=== PATIENT | male | born 1970 | race Caucasian/White ===

== ENCOUNTER 2016-04-18 02:13 | Emergency (ER) | payer SELFPAY ==
[2016-04-18] MEDS ORDERED: IPRATROPIUM 0.5MG/ALBUTEROL 2.5MG INH SOL UD 3ML (DUONEB)(J7620) As Ordered ONE (03:29)
[2016-04-18] MEDS ORDERED: predniSONE 20 MG TAB As Ordered ONE (03:32)
[2016-04-18] MEDS ORDERED: ALBUTEROL 90 MCG/ACT 8GM HFA INHALER As Ordered ONE (04:57)
--- NOTE | 2016-04-18 05:01 | EDDOCDS ---
Nurse's Notes [facility] Name: Aleksey Osullivan Age: 45 yrs Sex: Male : 1970 Arrival Date: 04/18/2016 Time: 02:13 Bed 12 Private MD: Diagnosis: Chronic obstructive pulmonary disease with (acute) exacerbation Presentation: 04/18 02:39 Presenting complaint: Patient states: increasing difficulty breathing for about one cz week pt here working on a project pt not from this area pt readily admits to smoking and history of same . history of COPD and asthma looking for a breathing treatment doesn't want a CXR. Adult Sepsis Screening: The patient does not have new or worsening altered mentation. Patient's respiratory rate is less than 22. Systolic blood pressure is greater than 100. Patient has a qSOFA score of 0- Negative Sepsis Screen. Suicide/Homicide risk assessment- the patient denies having any suicidal and/or homicidal ideations and does not present with any other emotional, behavioral or mental health complaints. 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 Transition of care: patient was not received from another setting of care. 02:39 Acuity: JORDIN Level 4 cz 02:39 Method Of Arrival: Walkin/Carried/Asstd cz Triage Assessment: 02:42 General: Appears in no apparent distress. Pain: Denies pain. HIV screening NA for this cz visit Offered previously. Respiratory: Onset: The symptoms/episode began/occurred one week. Historical: - Allergies: No known drug Allergies; - Home Meds: 1. none - PMHx: Asthma; COPD; Seasonal Allergies; - PSHx: right leg surgery; Splenectomy; - The history from nurses notes was reviewed: and I agree with what is documented. - Social history: Smoking status: Patient uses tobacco products, heavy tobacco smoker. No barriers to communication noted, The patient speaks fluent Singaporean, Speaks appropriately for age. - : The pt / caregiver states he / she is not on anticoagulants. Home medication list is obtained from the patient. - Hospitalizations: : No recent hospitalization is reported. - Exposure Risk Screening:: None identified. - Immunization history:: All immunizations up-to-date. - Family history: Not pertinent. - Social history:: the patient smokes cigarettes the patient drinks alcohol. Screenin:12 Screening information is obtained from the patient. Fall risk: No risks identified. cf2 Assistance ADL's: requires no assistance with activities of daily living. Abuse/DV Screen: The patient / caregiver reports he/she is: not in a situation that causes fear, pain or injury. Nutritional screening: No deficits noted. Advance Directives: Further advance directive information is declined. home support is adequate. Assessment: 04:12 General: Appears in no apparent distress, comfortable, Behavior is appropriate for age, cf2 cooperative. Pain: Denies pain. Neurological: No deficits noted. EENT: No deficits noted. Cardiovascular: No deficits noted. Chest pain is denied There has been no movement of pain. Respiratory: Airway is patent Respiratory effort is even, unlabored, Respiratory pattern is regular, Breath sounds with rhonchi Reports cough that is productive, hacking, persistent. GI: No deficits noted. : No deficits noted. Derm: No deficits noted. Musculoskeletal: No deficits noted. Injury Description: No known injury. 04:35 Reassessment: Patient appears in no apparent distress at this time. Patient denies pain cf2 at this time. Patient states feeling better. Patient states symptoms have improved. Adult Sepsis Screening: The patient does not have new or worsening altered mentation. Patient's respiratory rate is less than 22. Systolic blood pressure is greater than 100. Patient has a qSOFA score of 0- Negative Sepsis Screen. General: Patient states he is feeling better and requesting to be discharged. Vital Signs: 02:42 BP 135 / 86; Pulse 72; Resp 18; Temp 97.2(T); Pulse Ox 96% on R/A; Weight 83.91 kg; cz Height 5 ft. 9 in. (175.26 cm); 04:55 BP 110 / 61; Pulse 73; Resp 20; Temp 96.1(O); Pulse Ox 94% on R/A; Pain 0/10; jmv 02:42 Body Mass Index 27.32 (83.91 kg, 175.26 cm) Vitals: 02:42 Log In Time: April 18, 2016 at 02:15. ED Course: 02:14 Patient visited by Marian Knowles. lja 02:14 Patient moved to [facility] 02:41 Triage Initiated 02:45 Martha Penn,RN is Primary Nurse. cf2 02:45 Patient moved to 12 02:46 Patient visited by Martha Penn,SHASHANK. cf2 03:11 Sonido Lee MD is Attending Physician. pc 03:17 Patient visited by Sonido Lee MD. pc 03:18 Patient visited by Martha Penn RN. cf2 03:44 Patient visited by Martha Penn,SHASHANK. cf2 04:12 Patient visited by Martha Penn,SHASHANK. cf2 04:12 The patient / caregiver is instructed regarding the plan of care and ED course. Patient cf2 has correct armband on for positive identification. Placed in gown. Bed in low position. Call light in reach. Side rails up X 1. Side rails up X2. Property :Personal belongings accompany Pt. Door closed. Noise minimized. Visitors limited. Lights dimmed. Moved to private room. Diet tray given. PO fluids given. Verbal reassurance given. Warm blanket given. Pillow given. Head of bed elevated. Diet: Patient given snack. Tolerated well. 04:12 No IV's were initiated during this patient's visit. No procedures done that require cf2 assistance. 04:33 [facility] Payment Agreement was scanned into [employer] and attached to record. hs2 04:55 Patient visited by Ayan Richey PCA. edgar Administered Medications: 03:29 Drug: Albuterol-Ipratropium 1 neb [ipratropium-albuterol 0.5 mg-3 mg(2.5 mg base)/3 mL bb3 nebulization soln (1 neb)] Route: Nebulizer; 03:50 Follow up: lung sounds increased throughout. lung sounds are coarse throughout with bb3 scattered wheezes. Pt had a productive cough with a large amount of clear/white sputum. Pt denies any SOB past baseline at rest at this time. No adverse reactions to neb tx. Will re-assess for final neb in 20 min. 04:32 Follow up: pt refused third neb tx. pt states he does not want it and he has no dyspnea bb3 at this time. 03:29 Drug: Albuterol-Ipratropium 1 neb [ipratropium-albuterol 0.5 mg-3 mg(2.5 mg base)/3 mL bb3 nebulization soln (1 neb)] Route: Nebulizer; 03:44 Drug: predniSONE 60 mg [prednisone 20 mg tablet (3 tabs)] Route: PO; cf2 04:12 Follow up: Response: No Adverse Reaction cf2 04:59 Drug: Ventolin 2 puffs [Ventolin HFA 90 mcg/actuation aerosol inhaler (2 puffs)] Route: cf2 Inhalation; 04:59 Follow up: Response: Pt left department before re-evaluation is appropriate cf2 Intake: RT: 03:27 Oxygen is room air. Respiratory: Respiratory effort is even, unlabored, Respiratory bb3 pattern is regular symmetrical, diminished coarse high pitched inspiratory and expiratory wheezes throughout all lung mcqueen. 03:30 Initial Med Neb Given as ordered Patient was instructed and evaluated on procedure bb3 Subsequent Med Neb Given as ordered Patient was reinforced on procedure. 03:37 Respiratory: strong hacking non productive congested cough noted during neb tx. pulse bb3 77. 03:49 Respiratory: lung sounds increased throughout. lung sounds are coarse throughout with bb3 scattered wheezes. Pt had a productive cough with a large amount of clear/white sputum. Pt denies any SOB past baseline at rest at this time. No adverse reactions to neb tx. Will re-assess for final neb in 20 min. 04:35 Respiratory: third neb not given due to patient refusal. pt states he has no dyspnea bb3 past baseline. provider notified. Order Results: There are currently no results for this order. Outcome: 04:42 Discharge ordered by Provider. pc 04:59 Discharge Assessment: Patient awake, alert and oriented x 3. No cognitive and/or cf2 functional deficits noted. Patient verbalized understanding of disposition instructions. Patient awake and alert. Oriented to person, place and time. Patient verbalized understanding of disposition instructions. patient administered narcotics - no. The following High Risk Discharge criteria are identified: None. Discharged to home ambulatory, with significant other. Condition: good Condition: stable Condition: improved. Discharge instructions given to patient, Instructed on discharge instructions, follow up and referral plans. medication usage, Demonstrated understanding of instructions, medications, Prescriptions given X 4. No special radiology studies were completed. 05:00 Patient left the ED. cf2 Signatures: Sonido Lee MD MD pc Zecher, Calvin, SHASHANK RN Anjum Greenberg bb3 Arel, Iona Hand, Reg Reg hs2 Martha Penn RN RN cf2 Ayan Richey, SOIL CHEMIST SOIL CHEMIST jmv Corrections: (The following items were deleted from the chart) 02:48 02:39 Presenting complaint: Patient states: increasing difficulty breathing for about cz one week pt here working on a project pt not from here cz 03:51 03:27 Respiratory: Respiratory effort is even, unlabored, Respiratory pattern is bb3 regular symmetrical, diminished coarse expiratory wheezes throughout all lung mcqueen. bb3 MTDD
--- NOTE | 2016-04-18 05:01 | EDDOCDS ---
Physician Documentation [facility] Name: Aleksey Osullivan Age: 45 yrs Sex: Male : 1970 Arrival Date: 04/18/2016 Time: 02:13 Bed 12 Private MD: Disposition: 04/18 04:41 Critical Care: Critical care not applicable. pc Disposition: 04/18/16 04:42 Discharged to Home/Self Care. Impression: Chronic obstructive pulmonary disease with (acute) exacerbation. - Condition is Stable. - Discharge Instructions: Chronic Obstructive Pulmonary Disease. - Prescriptions for ipratropium bromide 0.02 % Inhalation solution - inhale 2.5 milliliter by INHALATION route 4 times per day; 1 box. Albuterol Sulfate 2.5 mg /3 mL (0.083 %) Inhalation Solution for Nebulization - inhale 1 unit by NEBULIZATION route 4 times per day As needed; 1 box. Prednisone 20 mg Oral Tablet - take 1 tablet by ORAL route as directed Day 1-3: 3 po, day 4-7: 2 po, day 8-10: 1 po; 20 tablet. Zithromax Z- Hesham 250 mg Oral Tablet - take 2 tablet by ORAL route once daily for 3 days; 6 tablet. - Medication Reconciliation, Local Pharmacy Hours form. - Follow up: Private Physician; When: Upon returning to your home town; Reason: Recheck today's complaints, Continuance of care. - Problem is an acute exacerbation. - Symptoms have improved. HPI: 03:18 This 45 yrs old Male presents to ER via Walkin/Carried/Asstd with complaints pc of Breathing Difficulty. 03:18 The history is obtained from the patient. He has COPD, has caught a "head cold" and is pc out of albuterol nebs. He is from out of town and has his machine but no meds for it. He denies any chest pain, fevers or chills, sputum production. The patient has experienced similar episodes in the past, chronically. The patient has been recently seen at the [facility], 2 months ago, for the same.. Historical: - Allergies: No known drug Allergies; - Home Meds: 1. none - PMHx: Asthma; COPD; Seasonal Allergies; - PSHx: right leg surgery; Splenectomy; - The history from nurses notes was reviewed: and I agree with what is documented. - Social history: Smoking status: Patient uses tobacco products, heavy tobacco smoker. No barriers to communication noted, The patient speaks fluent Martiniquais, Speaks appropriately for age. - : The pt / caregiver states he / she is not on anticoagulants. Home medication list is obtained from the patient. - Hospitalizations: : No recent hospitalization is reported. - Exposure Risk Screening:: None identified. - Immunization history:: All immunizations up-to-date. - Family history: Not pertinent. - Social history:: the patient smokes cigarettes the patient drinks alcohol. ROS: 03:18 All systems are negative except as listed. pc Exam: 03:18 General Appearance: no acute distress, alert. pc 03:18 EENT: normal eye inspection, ears, nose and throat normal, pharynx normal, mucous membranes moist 03:18 Neck: The exam reveals no acute abnormalities. ROM is normal and painless. No nuchal rigidity is noted.. 03:18 Respiratory: no respiratory distress, Breath sounds: wheezing, throughout. 03:18 CVS: regular pulse rate, regular rhythm, normal S1 and S2, no murmurs, strong peripheral pulses. 03:18 Extremities: no pedal edema. Vital Signs: 02:42 BP 135 / 86; Pulse 72; Resp 18; Temp 97.2(T); Pulse Ox 96% on R/A; Weight 83.91 kg / cz 184.99 lbs; Height 5 ft. 9 in. (175.26 cm); 04:55 BP 110 / 61; Pulse 73; Resp 20; Temp 96.1(O); Pulse Ox 94% on R/A; Pain 0/10; jmv 02:42 Body Mass Index 27.32 (83.91 kg, 175.26 cm) cz MDM: 03:18 predniSONE 60 mg PO once; administer with food or milk ordered. pc 03:18 Albuterol-Ipratropium 1 neb Nebulizer every 20 minutes x3 ordered. pc 03:18 Call Respiratory ordered. pc 03:18 Differential Diagnosis: COPD exacerbation. Plan: nebs, meds. pc 03:20 Call Respiratory complete. sew 04:33 Financial registration complete. hs2 04:33 [facility] Payment Agreement was scanned into [employer] and attached to record. hs2 04:41 Data reviewed: old medical records, vital signs, nurses notes. Test interpretation: pulse oximetry is 96% on room air. The patient has been re-examined and re-evaluated. The patient's symptoms have markedly improved after treatment. Disposition: The historical points, examination findings, and any diagnostic results supporting the provided diagnosis, were discussed with the patient or legal guardian. The need for outpatient follow up with the provider listed on their discharge instructions was discussed. They were encouraged to return to [facility], or the nearest ED, if symptoms worsen/persist, or for any other questions/concerns. 04:58 Ventolin Inhaler 2 puffs Inhalation Per package directions; dispense one unit: 2 puffs miles QID prn ordered. Administered Medications: 03:29 Drug: Albuterol-Ipratropium 1 neb [ipratropium-albuterol 0.5 mg-3 mg(2.5 mg base)/3 mL bb3 nebulization soln (1 neb)] Route: Nebulizer; 03:50 Follow up: lung sounds increased throughout. lung sounds are coarse throughout with bb3 scattered wheezes. Pt had a productive cough with a large amount of clear/white sputum. Pt denies any SOB past baseline at rest at this time. No adverse reactions to neb tx. Will re-assess for final neb in 20 min. 04:32 Follow up: pt refused third neb tx. pt states he does not want it and he has no dyspnea bb3 at this time. 03:29 Drug: Albuterol-Ipratropium 1 neb [ipratropium-albuterol 0.5 mg-3 mg(2.5 mg base)/3 mL bb3 nebulization soln (1 neb)] Route: Nebulizer; 03:44 Drug: predniSONE 60 mg [prednisone 20 mg tablet (3 tabs)] Route: PO; cf2 04:12 Follow up: Response: No Adverse Reaction cf2 04:59 Drug: Ventolin 2 puffs [Ventolin HFA 90 mcg/actuation aerosol inhaler (2 puffs)] Route: cf2 Inhalation; 04:59 Follow up: Response: Pt left department before re-evaluation is appropriate cf2 Signatures: Sonido Lee MD MD pc Newman, Jill New, RN RN jan Zecher, Calvin, RN RN cz Wallace, Sarah sew Stanton, Hillary, Reg Reg hs2 Martha Penn RN RN cf2 Bouthillier, Anjum bb3 The chart was reviewed and I authenticate all verbal orders and agree with the evaluation and treatment provided.Attachments: 04:33 [facility] Payment Agreement hs2 MTDD
--- NOTE | 2016-04-20 06:01 | EDDOCDS ---
Physician Documentation [facility] Name: Aleksey Osullivan Age: 45 yrs Sex: Male : 1970 Arrival Date: 04/18/2016 Time: 02:13 Bed 12 Private MD: Disposition: 04/18 04:41 Critical Care: Critical care not applicable. pc Disposition: 04/18/16 04:42 Discharged to Home/Self Care. Impression: Chronic obstructive pulmonary disease with (acute) exacerbation. - Condition is Stable. - Discharge Instructions: Chronic Obstructive Pulmonary Disease. - Prescriptions for ipratropium bromide 0.02 % Inhalation solution - inhale 2.5 milliliter by INHALATION route 4 times per day; 1 box. Albuterol Sulfate 2.5 mg /3 mL (0.083 %) Inhalation Solution for Nebulization - inhale 1 unit by NEBULIZATION route 4 times per day As needed; 1 box. Prednisone 20 mg Oral Tablet - take 1 tablet by ORAL route as directed Day 1-3: 3 po, day 4-7: 2 po, day 8-10: 1 po; 20 tablet. Zithromax Z- Hesham 250 mg Oral Tablet - take 2 tablet by ORAL route once daily for 3 days; 6 tablet. - Medication Reconciliation, Local Pharmacy Hours form. - Follow up: Private Physician; When: Upon returning to your home town; Reason: Recheck today's complaints, Continuance of care. - Problem is an acute exacerbation. - Symptoms have improved. HPI: 03:18 This 45 yrs old Male presents to ER via Walkin/Carried/Asstd with complaints pc of Breathing Difficulty. 03:18 The history is obtained from the patient. He has COPD, has caught a "head cold" and is pc out of albuterol nebs. He is from out of town and has his machine but no meds for it. He denies any chest pain, fevers or chills, sputum production. The patient has experienced similar episodes in the past, chronically. The patient has been recently seen at the [facility], 2 months ago, for the same.. Historical: - Allergies: No known drug Allergies; - Home Meds: 1. none - PMHx: Asthma; COPD; Seasonal Allergies; - PSHx: right leg surgery; Splenectomy; - The history from nurses notes was reviewed: and I agree with what is documented. - Social history: Smoking status: Patient uses tobacco products, heavy tobacco smoker. No barriers to communication noted, The patient speaks fluent Bermudian, Speaks appropriately for age. - : The pt / caregiver states he / she is not on anticoagulants. Home medication list is obtained from the patient. - Hospitalizations: : No recent hospitalization is reported. - Exposure Risk Screening:: None identified. - Immunization history:: All immunizations up-to-date. - Family history: Not pertinent. - Social history:: the patient smokes cigarettes the patient drinks alcohol. ROS: 03:18 All systems are negative except as listed. pc Exam: 03:18 General Appearance: no acute distress, alert. pc 03:18 EENT: normal eye inspection, ears, nose and throat normal, pharynx normal, mucous membranes moist 03:18 Neck: The exam reveals no acute abnormalities. ROM is normal and painless. No nuchal rigidity is noted.. 03:18 Respiratory: no respiratory distress, Breath sounds: wheezing, throughout. 03:18 CVS: regular pulse rate, regular rhythm, normal S1 and S2, no murmurs, strong peripheral pulses. 03:18 Extremities: no pedal edema. Vital Signs: 02:42 BP 135 / 86; Pulse 72; Resp 18; Temp 97.2(T); Pulse Ox 96% on R/A; Weight 83.91 kg / cz 184.99 lbs; Height 5 ft. 9 in. (175.26 cm); 04:55 BP 110 / 61; Pulse 73; Resp 20; Temp 96.1(O); Pulse Ox 94% on R/A; Pain 0/10; jmv 02:42 Body Mass Index 27.32 (83.91 kg, 175.26 cm) cz MDM: 03:18 predniSONE 60 mg PO once; administer with food or milk ordered. pc 03:18 Albuterol-Ipratropium 1 neb Nebulizer every 20 minutes x3 ordered. pc 03:18 Call Respiratory ordered. pc 03:18 Differential Diagnosis: COPD exacerbation. Plan: nebs, meds. pc 03:20 Call Respiratory complete. sew 04:33 Financial registration complete. hs2 04:33 [facility] Payment Agreement was scanned into [employer] and attached to record. hs2 04:41 Data reviewed: old medical records, vital signs, nurses notes. Test interpretation: pulse oximetry is 96% on room air. The patient has been re-examined and re-evaluated. The patient's symptoms have markedly improved after treatment. Disposition: The historical points, examination findings, and any diagnostic results supporting the provided diagnosis, were discussed with the patient or legal guardian. The need for outpatient follow up with the provider listed on their discharge instructions was discussed. They were encouraged to return to [facility], or the nearest ED, if symptoms worsen/persist, or for any other questions/concerns. 04:58 Ventolin Inhaler 2 puffs Inhalation Per package directions; dispense one unit: 2 puffs miles QID prn ordered. Administered Medications: 03:29 Drug: Albuterol-Ipratropium 1 neb [ipratropium-albuterol 0.5 mg-3 mg(2.5 mg base)/3 mL bb3 nebulization soln (1 neb)] Route: Nebulizer; 03:50 Follow up: lung sounds increased throughout. lung sounds are coarse throughout with bb3 scattered wheezes. Pt had a productive cough with a large amount of clear/white sputum. Pt denies any SOB past baseline at rest at this time. No adverse reactions to neb tx. Will re-assess for final neb in 20 min. 04:32 Follow up: pt refused third neb tx. pt states he does not want it and he has no dyspnea bb3 at this time. 03:29 Drug: Albuterol-Ipratropium 1 neb [ipratropium-albuterol 0.5 mg-3 mg(2.5 mg base)/3 mL bb3 nebulization soln (1 neb)] Route: Nebulizer; 03:44 Drug: predniSONE 60 mg [prednisone 20 mg tablet (3 tabs)] Route: PO; cf2 04:12 Follow up: Response: No Adverse Reaction cf2 04:59 Drug: Ventolin 2 puffs [Ventolin HFA 90 mcg/actuation aerosol inhaler (2 puffs)] Route: cf2 Inhalation; 04:59 Follow up: Response: Pt left department before re-evaluation is appropriate cf2 Signatures: Sonido Lee MD MD pc Newman, Jill New, RN RN jan Zecher, Calvin, RN RN cz Wallace, Sarah sew Stanton, Hillary, Reg Reg hs2 Martha Penn RN RN cf2 Bouthillier, Anjum bb3 The chart was reviewed and I authenticate all verbal orders and agree with the evaluation and treatment provided.Attachments: 04:33 [facility] [place] Agreement hs2 Chart Complete MTDD
--- NOTE | 2016-04-20 06:01 | EDDOCDS ---
Nurse's Notes [facility] Name: Aleksey Osullivan Age: 45 yrs Sex: Male : 1970 Arrival Date: 04/18/2016 Time: 02:13 Bed 12 Private MD: Diagnosis: Chronic obstructive pulmonary disease with (acute) exacerbation Presentation: 04/18 02:39 Presenting complaint: Patient states: increasing difficulty breathing for about one cz week pt here working on a project pt not from this area pt readily admits to smoking and history of same . history of COPD and asthma looking for a breathing treatment doesn't want a CXR. Adult Sepsis Screening: The patient does not have new or worsening altered mentation. Patient's respiratory rate is less than 22. Systolic blood pressure is greater than 100. Patient has a qSOFA score of 0- Negative Sepsis Screen. Suicide/Homicide risk assessment- the patient denies having any suicidal and/or homicidal ideations and does not present with any other emotional, behavioral or mental health complaints. Status: Patient is not a client service associate or dependent. Transition of care: patient was not received from another setting of care. 02:39 Acuity: JORDIN Level 4 cz 02:39 Method Of Arrival: Walkin/Carried/Asstd cz Triage Assessment: 02:42 General: Appears in no apparent distress. Pain: Denies pain. HIV screening NA for this cz visit Offered previously. Respiratory: Onset: The symptoms/episode began/occurred one week. Historical: - Allergies: No known drug Allergies; - Home Meds: 1. none - PMHx: Asthma; COPD; Seasonal Allergies; - PSHx: right leg surgery; Splenectomy; - The history from nurses notes was reviewed: and I agree with what is documented. - Social history: Smoking status: Patient uses tobacco products, heavy tobacco smoker. No barriers to communication noted, The patient speaks fluent [place], Speaks appropriately for age. - : The pt / caregiver states he / she is not on anticoagulants. Home medication list is obtained from the patient. - Hospitalizations: : No recent hospitalization is reported. - Exposure Risk Screening:: None identified. - Immunization history:: All immunizations up-to-date. - Family history: Not pertinent. - Social history:: the patient smokes cigarettes the patient drinks alcohol. Screenin:12 Screening information is obtained from the patient. Fall risk: No risks identified. cf2 Assistance ADL's: requires no assistance with activities of daily living. Abuse/DV Screen: The patient / caregiver reports he/she is: not in a situation that causes fear, pain or injury. Nutritional screening: No deficits noted. Advance Directives: Further advance directive information is declined. home support is adequate. Assessment: 04:12 General: Appears in no apparent distress, comfortable, Behavior is appropriate for age, cf2 cooperative. Pain: Denies pain. Neurological: No deficits noted. EENT: No deficits noted. Cardiovascular: No deficits noted. Chest pain is denied There has been no movement of pain. Respiratory: Airway is patent Respiratory effort is even, unlabored, Respiratory pattern is regular, Breath sounds with rhonchi Reports cough that is productive, hacking, persistent. GI: No deficits noted. : No deficits noted. Derm: No deficits noted. Musculoskeletal: No deficits noted. Injury Description: No known injury. 04:35 Reassessment: Patient appears in no apparent distress at this time. Patient denies pain cf2 at this time. Patient states feeling better. Patient states symptoms have improved. Adult Sepsis Screening: The patient does not have new or worsening altered mentation. Patient's respiratory rate is less than 22. Systolic blood pressure is greater than 100. Patient has a qSOFA score of 0- Negative Sepsis Screen. General: Patient states he is feeling better and requesting to be discharged. Vital Signs: 02:42 BP 135 / 86; Pulse 72; Resp 18; Temp 97.2(T); Pulse Ox 96% on R/A; Weight 83.91 kg; cz Height 5 ft. 9 in. (175.26 cm); 04:55 BP 110 / 61; Pulse 73; Resp 20; Temp 96.1(O); Pulse Ox 94% on R/A; Pain 0/10; jmv 02:42 Body Mass Index 27.32 (83.91 kg, 175.26 cm) Vitals: 02:42 Log In Time: April 18, 2016 at 02:15. ED Course: 02:14 Patient visited by Marian Knowles. lja 02:14 Patient moved to [facility] 02:41 Triage Initiated 02:45 Martha Penn,RN is Primary Nurse. cf2 02:45 Patient moved to 12 02:46 Patient visited by Martha Penn,SHASHANK. cf2 03:11 Sonido Lee MD is Attending Physician. pc 03:17 Patient visited by Sonido Lee MD. pc 03:18 Patient visited by Martha Penn RN. cf2 03:44 Patient visited by Martha Penn,SHASHANK. cf2 04:12 Patient visited by Martha Penn,SHASHANK. cf2 04:12 The patient / caregiver is instructed regarding the plan of care and ED course. Patient cf2 has correct armband on for positive identification. Placed in gown. Bed in low position. Call light in reach. Side rails up X 1. Side rails up X2. Property :Personal belongings accompany Pt. Door closed. Noise minimized. Visitors limited. Lights dimmed. Moved to private room. Diet tray given. PO fluids given. Verbal reassurance given. Warm blanket given. Pillow given. Head of bed elevated. Diet: Patient given snack. Tolerated well. 04:12 No IV's were initiated during this patient's visit. No procedures done that require cf2 assistance. 04:33 [facility] Payment Agreement was scanned into [employer] and attached to record. hs2 04:55 Patient visited by Ayan Richey PCA. edgar Administered Medications: 03:29 Drug: Albuterol-Ipratropium 1 neb [ipratropium-albuterol 0.5 mg-3 mg(2.5 mg base)/3 mL bb3 nebulization soln (1 neb)] Route: Nebulizer; 03:50 Follow up: lung sounds increased throughout. lung sounds are coarse throughout with bb3 scattered wheezes. Pt had a productive cough with a large amount of clear/white sputum. Pt denies any SOB past baseline at rest at this time. No adverse reactions to neb tx. Will re-assess for final neb in 20 min. 04:32 Follow up: pt refused third neb tx. pt states he does not want it and he has no dyspnea bb3 at this time. 03:29 Drug: Albuterol-Ipratropium 1 neb [ipratropium-albuterol 0.5 mg-3 mg(2.5 mg base)/3 mL bb3 nebulization soln (1 neb)] Route: Nebulizer; 03:44 Drug: predniSONE 60 mg [prednisone 20 mg tablet (3 tabs)] Route: PO; cf2 04:12 Follow up: Response: No Adverse Reaction cf2 04:59 Drug: Ventolin 2 puffs [Ventolin HFA 90 mcg/actuation aerosol inhaler (2 puffs)] Route: cf2 Inhalation; 04:59 Follow up: Response: Pt left department before re-evaluation is appropriate cf2 Intake: RT: 03:27 Oxygen is room air. Respiratory: Respiratory effort is even, unlabored, Respiratory bb3 pattern is regular symmetrical, diminished coarse high pitched inspiratory and expiratory wheezes throughout all lung mcqueen. 03:30 Initial Med Neb Given as ordered Patient was instructed and evaluated on procedure bb3 Subsequent Med Neb Given as ordered Patient was reinforced on procedure. 03:37 Respiratory: strong hacking non productive congested cough noted during neb tx. pulse bb3 77. 03:49 Respiratory: lung sounds increased throughout. lung sounds are coarse throughout with bb3 scattered wheezes. Pt had a productive cough with a large amount of clear/white sputum. Pt denies any SOB past baseline at rest at this time. No adverse reactions to neb tx. Will re-assess for final neb in 20 min. 04:35 Respiratory: third neb not given due to patient refusal. pt states he has no dyspnea bb3 past baseline. provider notified. Order Results: There are currently no results for this order. Outcome: 04:42 Discharge ordered by Provider. pc 04:59 Discharge Assessment: Patient awake, alert and oriented x 3. No cognitive and/or cf2 functional deficits noted. Patient verbalized understanding of disposition instructions. Patient awake and alert. Oriented to person, place and time. Patient verbalized understanding of disposition instructions. patient administered narcotics - no. The following High Risk Discharge criteria are identified: None. Discharged to home ambulatory, with significant other. Condition: good Condition: stable Condition: improved. Discharge instructions given to patient, Instructed on discharge instructions, follow up and referral plans. medication usage, Demonstrated understanding of instructions, medications, Prescriptions given X 4. No special radiology studies were completed. 05:00 Patient left the ED. cf2 Signatures: Sonido Lee MD MD pc Zecher, Calvin, SHASHANK RN Anjum Greenberg bb3 Arel, Iona Hand, Reg Reg hs2 Martha Penn RN RN cf2 Ayan Richey, FLAT SPRING ASSEMBLER FLAT SPRING ASSEMBLER jmv Corrections: (The following items were deleted from the chart) 02:48 02:39 Presenting complaint: Patient states: increasing difficulty breathing for about cz one week pt here working on a project pt not from here cz 03:51 03:27 Respiratory: Respiratory effort is even, unlabored, Respiratory pattern is bb3 regular symmetrical, diminished coarse expiratory wheezes throughout all lung mcqueen. bb3 Chart Complete MTDD
--- NOTE | 2016-04-20 06:01 | EDDOCDS ---
Physician Documentation [facility] Name: Aleksey Osullivan Age: 45 yrs Sex: Male : 1970 Arrival Date: 04/18/2016 Time: 02:13 Bed 12 Private MD: Disposition: 04/18 04:41 Critical Care: Critical care not applicable. pc Disposition: 04/18/16 04:42 Discharged to Home/Self Care. Impression: Chronic obstructive pulmonary disease with (acute) exacerbation. - Condition is Stable. - Discharge Instructions: Chronic Obstructive Pulmonary Disease. - Prescriptions for ipratropium bromide 0.02 % Inhalation solution - inhale 2.5 milliliter by INHALATION route 4 times per day; 1 box. Albuterol Sulfate 2.5 mg /3 mL (0.083 %) Inhalation Solution for Nebulization - inhale 1 unit by NEBULIZATION route 4 times per day As needed; 1 box. Prednisone 20 mg Oral Tablet - take 1 tablet by ORAL route as directed Day 1-3: 3 po, day 4-7: 2 po, day 8-10: 1 po; 20 tablet. Zithromax Z- Hesham 250 mg Oral Tablet - take 2 tablet by ORAL route once daily for 3 days; 6 tablet. - Medication Reconciliation, Local Pharmacy Hours form. - Follow up: Private Physician; When: Upon returning to your home town; Reason: Recheck today's complaints, Continuance of care. - Problem is an acute exacerbation. - Symptoms have improved. HPI: 03:18 This 45 yrs old Male presents to ER via Walkin/Carried/Asstd with complaints pc of Breathing Difficulty. 03:18 The history is obtained from the patient. He has COPD, has caught a "head cold" and is pc out of albuterol nebs. He is from out of town and has his machine but no meds for it. He denies any chest pain, fevers or chills, sputum production. The patient has experienced similar episodes in the past, chronically. The patient has been recently seen at the [facility], 2 months ago, for the same.. Historical: - Allergies: No known drug Allergies; - Home Meds: 1. none - PMHx: Asthma; COPD; Seasonal Allergies; - PSHx: right leg surgery; Splenectomy; - The history from nurses notes was reviewed: and I agree with what is documented. - Social history: Smoking status: Patient uses tobacco products, heavy tobacco smoker. No barriers to communication noted, The patient speaks fluent [place], Speaks appropriately for age. - : The pt / caregiver states he / she is not on anticoagulants. Home medication list is obtained from the patient. - Hospitalizations: : No recent hospitalization is reported. - Exposure Risk Screening:: None identified. - Immunization history:: All immunizations up-to-date. - Family history: Not pertinent. - Social history:: the patient smokes cigarettes the patient drinks alcohol. ROS: 03:18 All systems are negative except as listed. pc Exam: 03:18 General Appearance: no acute distress, alert. pc 03:18 EENT: normal eye inspection, ears, nose and throat normal, pharynx normal, mucous membranes moist 03:18 Neck: The exam reveals no acute abnormalities. ROM is normal and painless. No nuchal rigidity is noted.. 03:18 Respiratory: no respiratory distress, Breath sounds: wheezing, throughout. 03:18 CVS: regular pulse rate, regular rhythm, normal S1 and S2, no murmurs, strong peripheral pulses. 03:18 Extremities: no pedal edema. Vital Signs: 02:42 BP 135 / 86; Pulse 72; Resp 18; Temp 97.2(T); Pulse Ox 96% on R/A; Weight 83.91 kg / cz 184.99 lbs; Height 5 ft. 9 in. (175.26 cm); 04:55 BP 110 / 61; Pulse 73; Resp 20; Temp 96.1(O); Pulse Ox 94% on R/A; Pain 0/10; jmv 02:42 Body Mass Index 27.32 (83.91 kg, 175.26 cm) cz MDM: 03:18 predniSONE 60 mg PO once; administer with food or milk ordered. pc 03:18 Albuterol-Ipratropium 1 neb Nebulizer every 20 minutes x3 ordered. pc 03:18 Call Respiratory ordered. pc 03:18 Differential Diagnosis: COPD exacerbation. Plan: nebs, meds. pc 03:20 Call Respiratory complete. sew 04:33 Financial registration complete. hs2 04:33 [facility] Payment Agreement was scanned into [employer] and attached to record. hs2 04:41 Data reviewed: old medical records, vital signs, nurses notes. Test interpretation: pulse oximetry is 96% on room air. The patient has been re-examined and re-evaluated. The patient's symptoms have markedly improved after treatment. Disposition: The historical points, examination findings, and any diagnostic results supporting the provided diagnosis, were discussed with the patient or legal guardian. The need for outpatient follow up with the provider listed on their discharge instructions was discussed. They were encouraged to return to [facility], or the nearest ED, if symptoms worsen/persist, or for any other questions/concerns. 04:58 Ventolin Inhaler 2 puffs Inhalation Per package directions; dispense one unit: 2 puffs miles QID prn ordered. Administered Medications: 03:29 Drug: Albuterol-Ipratropium 1 neb [ipratropium-albuterol 0.5 mg-3 mg(2.5 mg base)/3 mL bb3 nebulization soln (1 neb)] Route: Nebulizer; 03:50 Follow up: lung sounds increased throughout. lung sounds are coarse throughout with bb3 scattered wheezes. Pt had a productive cough with a large amount of clear/white sputum. Pt denies any SOB past baseline at rest at this time. No adverse reactions to neb tx. Will re-assess for final neb in 20 min. 04:32 Follow up: pt refused third neb tx. pt states he does not want it and he has no dyspnea bb3 at this time. 03:29 Drug: Albuterol-Ipratropium 1 neb [ipratropium-albuterol 0.5 mg-3 mg(2.5 mg base)/3 mL bb3 nebulization soln (1 neb)] Route: Nebulizer; 03:44 Drug: predniSONE 60 mg [prednisone 20 mg tablet (3 tabs)] Route: PO; cf2 04:12 Follow up: Response: No Adverse Reaction cf2 04:59 Drug: Ventolin 2 puffs [Ventolin HFA 90 mcg/actuation aerosol inhaler (2 puffs)] Route: cf2 Inhalation; 04:59 Follow up: Response: Pt left department before re-evaluation is appropriate cf2 Signatures: Sonido Lee MD MD pc Newman, Jill New, RN RN jan Zecher, Calvin, RN RN cz Wallace, Sarah sew Stanton, Hillary, Reg Reg hs2 Martha Penn RN RN cf2 Bouthillier, Anjum bb3 The chart was reviewed and I authenticate all verbal orders and agree with the evaluation and treatment provided.Attachments: 04:33 [facility] Payment Agreement hs2 Chart Complete MTDD
== END 2016-04-18 05:00 | disposition home or self-care (01) ==
LOC: M ED 02:13
DX: J44.1 Chronic obstructive pulmonary disease with (acute) exacerbation (principal); J45.909 Unspecified asthma, uncomplicated; J30.2 Other seasonal allergic rhinitis; F17.200 Nicotine dependence, unspecified, uncomplicated

== ENCOUNTER 2016-05-03 23:34 | Emergency (ER) | payer SELFPAY ==
[2016-05-04] MEDS ORDERED: ALBUTEROL 90 MCG/ACT 8GM HFA INHALER As Ordered ONE (00:05)
[2016-05-04] MEDS ORDERED: AMOXICILLIN 500 MG CAP As Ordered ONE (00:05)
[2016-05-04] MEDS ORDERED: IBUPROFEN 800 MG TAB As Ordered ONE (00:05)
--- NOTE | 2016-05-04 00:35 | EDDOCDS ---
Physician Documentation [facility] Name: Aleksey Osullivan Age: 45 yrs Sex: Male : 1970 Arrival Date: 05/03/2016 Time: 23:34 Bed Triage 3 Private MD: NO PRIMARY PHYSICIAN, . Disposition: 05/03/16 23:56 Discharged to Home/Self Care. Impression: Dental caries, Chronic obstructive pulmonary disease with (acute) exacerbation. - Condition is Stable. - Discharge Instructions: Chronic Obstructive Pulmonary Disease, Dental Abscess, Dental Pain. - Prescriptions for Amoxicillin 500 mg Oral Capsule - take 1 capsule by ORAL route every 8 hours for 10 days; 30 tablet. Ibuprofen 800 mg Oral Tablet - take 1 tablet by ORAL route every 8 hours As needed take with food; 30 tablet. Albuterol Sulfate 2.5 mg /3 mL (0.083 %) Inhalation Solution for Nebulization - inhale 1 unit by NEBULIZATION route 4 times per day As needed; 1 box. - Medication Reconciliation, Local Pharmacy Hours form. - Follow up: Private Physician; When: Call to arrange an appointment; Reason: Recheck today's complaints, Continuance of care. - Problem is new. - Symptoms are unchanged. Historical: - Allergies: No known drug Allergies; - Home Meds: 1. albuterol sulfate 90 mcg/actuation Inhl HFAA 2 puffs as needed 2. Symbicort 160-4.5 mcg/actuation inhalation HFAA 2 puffs 2 times per day - PMHx: Asthma; COPD; Seasonal Allergies; - PSHx: right leg surgery; Splenectomy; - Social history: Smoking status: Patient uses tobacco products, heavy tobacco smoker. No barriers to communication noted, The patient speaks fluent [place]bourgish, Speaks appropriately for age. - Family history: Not pertinent. - : The pt / caregiver states he / she is not on anticoagulants. Home medication list is obtained from the patient. - Exposure Risk Screening:: None identified. Vital Signs: 05/03 23:37 BP 133 / 75; Pulse 81; Resp 18 S; Temp 97.1(O); Pulse Ox 96% on R/A; Weight 83.91 kg / gr2 184.99 lbs (R); Height 5 ft. 9 in. (175.26 cm) (R); Pain 6/10; 23:37 Body Mass Index 27.32 (83.91 kg, 175.26 cm) gr2 MDM: 23:55 Ventolin Inhaler 2 puffs Inhalation once; 1-2 puffs every 4-6hrs ordered. mo1 23:55 Amoxicillin 500 mg PO once ordered. mo1 23:55 Ibuprofen 800 mg PO once ordered. mo1 05/04 00:14 Financial registration complete. pm4 00:28 [facility] Payment Agreement was scanned into [employer] and attached to record. pm4 Administered Medications: 00:10 Drug: Ventolin 2 puffs [Ventolin HFA 90 mcg/actuation aerosol inhaler (2 puffs)] Route: kmg1 Inhalation; 00:10 Drug: Amoxicillin 500 mg [amoxicillin 500 mg capsule (1 caps)] Route: PO; kmg1 00:10 Drug: Ibuprofen 800 mg [ibuprofen 800 mg tablet (1 tabs)] Route: PO; kmg1 Signatures: Jenna Negron RN RN kmg1 Migue Fuentes PA PA mo1 Arnaud Sal, Reg Reg pm4 The chart was reviewed and I authenticate all verbal orders and agree with the evaluation and treatment provided.Attachments: 00:28 [facility] Payment Agreement pm4 MTDD
--- NOTE | 2016-05-04 00:35 | EDDOCDS ---
Nurse's Notes [facility] Name: Aleksey Osullivan Age: 45 yrs Sex: Male : 1970 Arrival Date: 05/03/2016 Time: 23:34 Bed Triage 3 Private MD: NO PRIMARY PHYSICIAN, . Diagnosis: Dental caries;Chronic obstructive pulmonary disease with (acute) exacerbation Presentation: 05/03 23:41 Presenting complaint: Patient states: Broken teeth left lower jaw causing pain. Feels kmg1 he has an abscess. Adult Sepsis Screening: The patient does not have new or worsening altered mentation. Patient's respiratory rate is less than 22. Systolic blood pressure is greater than 100. Patient has a qSOFA score of 0- Negative Sepsis Screen. Suicide/Homicide risk assessment- the patient denies having any suicidal and/or homicidal ideations and does not present with any other emotional, behavioral or mental health complaints. Status: Patient is not a mechanical technical service specialist or dependent. Transition of care: patient was not received from another setting of care. 23:41 Acuity: JORDIN Level 5 [facility] 23:41 Method Of Arrival: Walkin/Carried/Asstd km Triage Assessment: 23:45 General: Appears in no apparent distress, comfortable, Behavior is appropriate for age, kmg1 cooperative. Pain: Location: lower left first bicuspid, lower left cuspid and lower left lateral incisor Pain currently is 10 out of 10 on a pain scale. Quality of pain is described as shooting, throbbing. HIV screening NA for this visit Offered previously. EENT: Reports pain in mouth Pain is 10 out of 10 on a pain scale. Historical: - Allergies: No known drug Allergies; - Home Meds: 1. albuterol sulfate 90 mcg/actuation Inhl HFAA 2 puffs as needed 2. Symbicort 160-4.5 mcg/actuation inhalation HFAA 2 puffs 2 times per day - PMHx: Asthma; COPD; Seasonal Allergies; - PSHx: right leg surgery; Splenectomy; - Social history: Smoking status: Patient uses tobacco products, heavy tobacco smoker. No barriers to communication noted, The patient speaks fluent [place], Speaks appropriately for age. - Family history: Not pertinent. - : The pt / caregiver states he / she is not on anticoagulants. Home medication list is obtained from the patient. - Exposure Risk Screening:: None identified. Screenin:55 Screening information is obtained from the patient. Fall risk: No risks identified. kmg1 Assistance ADL's: requires no assistance with activities of daily living. Abuse/DV Screen: The patient / caregiver reports he/she is: not in a situation that causes fear, pain or injury. Nutritional screening: No deficits noted. Advance Directives: There is no active DNR order. home support is adequate. Assessment: 23:40 General: General: See triage assessment. kmg1 23:55 Reassessment: Patient appears in no apparent distress at this time. No change in prior km assessment. Vital Signs: 23:37 BP 133 / 75; Pulse 81; Resp 18 S; Temp 97.1(O); Pulse Ox 96% on R/A; Weight 83.91 kg gr2 (R); Height 5 ft. 9 in. (175.26 cm) (R); Pain 6/10; 23:37 Body Mass Index 27.32 (83.91 kg, 175.26 cm) gr2 Vitals: 23:37 Log In Time: May 03, 2016 at 23:37. gr2 ED Course: 23:37 Patient visited by Dorcas Covintgon. gr2 23:37 NO PRIMARY PHYSICIAN, . is Private Physician. gr2 23:37 Patient moved to Waiting gr2 23:38 Patient visited by Dorcas Covington. gr2 23:38 Patient moved to Pre RCE gr2 23:44 Triage Initiated kmg1 23:47 Patient moved to Triage 3 kmg1 23:48 Migue Fuentes PA is PHCP. mo1 23:48 Almas Mann DO is Attending Physician. mo1 23:53 Patient visited by Migue Fuentes PA. mo1 23:55 The patient / caregiver is instructed regarding the plan of care and ED course. kmg1 23:55 No IV's were initiated during this patient's visit. No procedures done that require kmg1 assistance. 05/04 00:28 [facility] Payment Agreement was scanned into [employer] and attached to record. pm4 Administered Medications: 00:10 Drug: Ventolin 2 puffs [Ventolin HFA 90 mcg/actuation aerosol inhaler (2 puffs)] Route: kmg1 Inhalation; 00:10 Drug: Amoxicillin 500 mg [amoxicillin 500 mg capsule (1 caps)] Route: PO; kmg1 00:10 Drug: Ibuprofen 800 mg [ibuprofen 800 mg tablet (1 tabs)] Route: PO; kmg1 Order Results: There are currently no results for this order. Outcome: 05/03 23:56 Discharge ordered by Provider. mo1 05/04 00:10 Discharge Assessment: Patient awake, alert and oriented x 3. No cognitive and/or kmg1 functional deficits noted. Patient verbalized understanding of disposition instructions. Patient awake and alert. patient administered narcotics - no. The following High Risk Discharge criteria are identified: None. Condition: stable. Discharge instructions given to patient, Instructed on discharge instructions, follow up and referral plans. medication usage. Demonstrated understanding of instructions, medications, Pt was receptive of discharge instructions/ teaching. Prescriptions given X 3. No special radiology studies were completed. Property sent home with patient. 00:33 Patient left the ED. [facility] Signatures: Jenna Negron RN RN kmg1 Dorcas Covington gr2 Migue Fuentes PA PA mo1 Arnaud Sal, Reg Reg pm4 KAYYD
--- NOTE | 2016-05-06 01:34 | EDDOCDS ---
Physician Documentation [facility] Name: Aleksey Osullivan Age: 45 yrs Sex: Male : 1970 Arrival Date: 05/03/2016 Time: 23:34 Bed Triage 3 Private MD: NO PRIMARY PHYSICIAN, . Disposition: 05/03/16 23:56 Discharged to Home/Self Care. Impression: Dental caries, Chronic obstructive pulmonary disease with (acute) exacerbation. - Condition is Stable. - Discharge Instructions: Chronic Obstructive Pulmonary Disease, Dental Abscess, Dental Pain. - Prescriptions for Amoxicillin 500 mg Oral Capsule - take 1 capsule by ORAL route every 8 hours for 10 days; 30 tablet. Ibuprofen 800 mg Oral Tablet - take 1 tablet by ORAL route every 8 hours As needed take with food; 30 tablet. Albuterol Sulfate 2.5 mg /3 mL (0.083 %) Inhalation Solution for Nebulization - inhale 1 unit by NEBULIZATION route 4 times per day As needed; 1 box. - Medication Reconciliation, Local Pharmacy Hours form. - Follow up: Private Physician; When: Call to arrange an appointment; Reason: Recheck today's complaints, Continuance of care. - Problem is new. - Symptoms are unchanged. Historical: - Allergies: No known drug Allergies; - Home Meds: 1. albuterol sulfate 90 mcg/actuation Inhl HFAA 2 puffs as needed 2. Symbicort 160-4.5 mcg/actuation inhalation HFAA 2 puffs 2 times per day - PMHx: Asthma; COPD; Seasonal Allergies; - PSHx: right leg surgery; Splenectomy; - Social history: Smoking status: Patient uses tobacco products, heavy tobacco smoker. No barriers to communication noted, The patient speaks fluent Pashto, Speaks appropriately for age. - Family history: Not pertinent. - : The pt / caregiver states he / she is not on anticoagulants. Home medication list is obtained from the patient. - Exposure Risk Screening:: None identified. Vital Signs: 05/03 23:37 BP 133 / 75; Pulse 81; Resp 18 S; Temp 97.1(O); Pulse Ox 96% on R/A; Weight 83.91 kg / gr2 184.99 lbs (R); Height 5 ft. 9 in. (175.26 cm) (R); Pain 6/10; 23:37 Body Mass Index 27.32 (83.91 kg, 175.26 cm) gr2 MDM: 23:55 Ventolin Inhaler 2 puffs Inhalation once; 1-2 puffs every 4-6hrs ordered. mo1 23:55 Amoxicillin 500 mg PO once ordered. mo1 23:55 Ibuprofen 800 mg PO once ordered. mo1 05/04 00:14 Financial registration complete. pm4 00:28 [facility] Payment Agreement was scanned into [employer] and attached to record. pm4 11:29 T-Sheet-- Draft Copy was scanned into [employer] and attached to record. gb Administered Medications: 00:10 Drug: Ventolin 2 puffs [Ventolin HFA 90 mcg/actuation aerosol inhaler (2 puffs)] Route: kmg1 Inhalation; 00:10 Drug: Amoxicillin 500 mg [amoxicillin 500 mg capsule (1 caps)] Route: PO; kmg1 00:10 Drug: Ibuprofen 800 mg [ibuprofen 800 mg tablet (1 tabs)] Route: PO; kmg1 Signatures: Jenna Negron RN RN kmg1 Tanya Grayson, Reg Reg gb Migue Fuentes PA PA mo1 Arnaud Sal, Reg Reg pm4 The chart was reviewed and I authenticate all verbal orders and agree with the evaluation and treatment provided.Attachments: 00:28 [facility] Payment Agreement pm4 11:29 T-Sheet-- Draft Copy gb Chart Complete MTDD
--- NOTE | 2016-05-06 01:34 | EDDOCDS ---
Nurse's Notes [facility] Name: Aleksey Osullivan Age: 45 yrs Sex: Male : 1970 Arrival Date: 05/03/2016 Time: 23:34 Bed Triage 3 Private MD: NO PRIMARY PHYSICIAN, . Diagnosis: Dental caries;Chronic obstructive pulmonary disease with (acute) exacerbation Presentation: 05/03 23:41 Presenting complaint: Patient states: Broken teeth left lower jaw causing pain. Feels kmg1 he has an abscess. Adult Sepsis Screening: The patient does not have new or worsening altered mentation. Patient's respiratory rate is less than 22. Systolic blood pressure is greater than 100. Patient has a qSOFA score of 0- Negative Sepsis Screen. Suicide/Homicide risk assessment- the patient denies having any suicidal and/or homicidal ideations and does not present with any other emotional, behavioral or mental health complaints. Status: Patient is not a hr shared services consultant or dependent. Transition of care: patient was not received from another setting of care. 23:41 Acuity: JORDIN Level 5 [facility] 23:41 Method Of Arrival: Walkin/Carried/Asstd km Triage Assessment: 23:45 General: Appears in no apparent distress, comfortable, Behavior is appropriate for age, kmg1 cooperative. Pain: Location: lower left first bicuspid, lower left cuspid and lower left lateral incisor Pain currently is 10 out of 10 on a pain scale. Quality of pain is described as shooting, throbbing. HIV screening NA for this visit Offered previously. EENT: Reports pain in mouth Pain is 10 out of 10 on a pain scale. Historical: - Allergies: No known drug Allergies; - Home Meds: 1. albuterol sulfate 90 mcg/actuation Inhl HFAA 2 puffs as needed 2. Symbicort 160-4.5 mcg/actuation inhalation HFAA 2 puffs 2 times per day - PMHx: Asthma; COPD; Seasonal Allergies; - PSHx: right leg surgery; Splenectomy; - Social history: Smoking status: Patient uses tobacco products, heavy tobacco smoker. No barriers to communication noted, The patient speaks fluent Nigerian, Speaks appropriately for age. - Family history: Not pertinent. - : The pt / caregiver states he / she is not on anticoagulants. Home medication list is obtained from the patient. - Exposure Risk Screening:: None identified. Screenin:55 Screening information is obtained from the patient. Fall risk: No risks identified. kmg1 Assistance ADL's: requires no assistance with activities of daily living. Abuse/DV Screen: The patient / caregiver reports he/she is: not in a situation that causes fear, pain or injury. Nutritional screening: No deficits noted. Advance Directives: There is no active DNR order. home support is adequate. Assessment: 23:40 General: General: See triage assessment. kmg1 23:55 Reassessment: Patient appears in no apparent distress at this time. No change in prior km assessment. Vital Signs: 23:37 BP 133 / 75; Pulse 81; Resp 18 S; Temp 97.1(O); Pulse Ox 96% on R/A; Weight 83.91 kg gr2 (R); Height 5 ft. 9 in. (175.26 cm) (R); Pain 6/10; 23:37 Body Mass Index 27.32 (83.91 kg, 175.26 cm) gr2 Vitals: 23:37 Log In Time: May 03, 2016 at 23:37. gr2 ED Course: 23:37 Patient visited by Dorcas Covington. gr2 23:37 NO PRIMARY PHYSICIAN, . is Private Physician. gr2 23:37 Patient moved to Waiting gr2 23:38 Patient visited by Dorcas Covington. gr2 23:38 Patient moved to Pre RCE gr2 23:44 Triage Initiated kmg1 23:47 Patient moved to Triage 3 kmg1 23:48 Migue Fuentes PA is PHCP. mo1 23:48 Almas Mann DO is Attending Physician. mo1 23:53 Patient visited by Migue Fuentes PA. mo1 23:55 The patient / caregiver is instructed regarding the plan of care and ED course. kmg1 23:55 No IV's were initiated during this patient's visit. No procedures done that require kmg1 assistance. 05/04 00:28 [facility] [place] Agreement was scanned into [employer] and attached to record. pm4 11:29 T-Sheet-- Draft Copy was scanned into [employer] and attached to record. gb Administered Medications: 00:10 Drug: Ventolin 2 puffs [Ventolin HFA 90 mcg/actuation aerosol inhaler (2 puffs)] Route: kmg1 Inhalation; 00:10 Drug: Amoxicillin 500 mg [amoxicillin 500 mg capsule (1 caps)] Route: PO; kmg1 00:10 Drug: Ibuprofen 800 mg [ibuprofen 800 mg tablet (1 tabs)] Route: PO; kmg1 Order Results: There are currently no results for this order. Outcome: 05/03 23:56 Discharge ordered by Provider. mo1 05/04 00:10 Discharge Assessment: Patient awake, alert and oriented x 3. No cognitive and/or kmg1 functional deficits noted. Patient verbalized understanding of disposition instructions. Patient awake and alert. patient administered narcotics - no. The following High Risk Discharge criteria are identified: None. Condition: stable. Discharge instructions given to patient, Instructed on discharge instructions, follow up and referral plans. medication usage. Demonstrated understanding of instructions, medications, Pt was receptive of discharge instructions/ teaching. Prescriptions given X 3. No special radiology studies were completed. Property sent home with patient. 00:33 Patient left the ED. [facility] Signatures: Jenna Negron RN RN kmg1 Tanya Grayson, Reg Reg gb Dorcas Covington gr2 Migue Fuentes PA PA mo1 Arnaud Sal, Reg Reg pm4 Chart Complete MTDD
--- NOTE | 2016-05-06 01:34 | EDDOCDS ---
Physician Documentation [facility] Name: Aleksey Osullivan Age: 45 yrs Sex: Male : 1970 Arrival Date: 05/03/2016 Time: 23:34 Bed Triage 3 Private MD: NO PRIMARY PHYSICIAN, . Disposition: 05/03/16 23:56 Discharged to Home/Self Care. Impression: Dental caries, Chronic obstructive pulmonary disease with (acute) exacerbation. - Condition is Stable. - Discharge Instructions: Chronic Obstructive Pulmonary Disease, Dental Abscess, Dental Pain. - Prescriptions for Amoxicillin 500 mg Oral Capsule - take 1 capsule by ORAL route every 8 hours for 10 days; 30 tablet. Ibuprofen 800 mg Oral Tablet - take 1 tablet by ORAL route every 8 hours As needed take with food; 30 tablet. Albuterol Sulfate 2.5 mg /3 mL (0.083 %) Inhalation Solution for Nebulization - inhale 1 unit by NEBULIZATION route 4 times per day As needed; 1 box. - Medication Reconciliation, Local Pharmacy Hours form. - Follow up: Private Physician; When: Call to arrange an appointment; Reason: Recheck today's complaints, Continuance of care. - Problem is new. - Symptoms are unchanged. Historical: - Allergies: No known drug Allergies; - Home Meds: 1. albuterol sulfate 90 mcg/actuation Inhl HFAA 2 puffs as needed 2. Symbicort 160-4.5 mcg/actuation inhalation HFAA 2 puffs 2 times per day - PMHx: Asthma; COPD; Seasonal Allergies; - PSHx: right leg surgery; Splenectomy; - Social history: Smoking status: Patient uses tobacco products, heavy tobacco smoker. No barriers to communication noted, The patient speaks fluent Slovak, Speaks appropriately for age. - Family history: Not pertinent. - : The pt / caregiver states he / she is not on anticoagulants. Home medication list is obtained from the patient. - Exposure Risk Screening:: None identified. Vital Signs: 05/03 23:37 BP 133 / 75; Pulse 81; Resp 18 S; Temp 97.1(O); Pulse Ox 96% on R/A; Weight 83.91 kg / gr2 184.99 lbs (R); Height 5 ft. 9 in. (175.26 cm) (R); Pain 6/10; 23:37 Body Mass Index 27.32 (83.91 kg, 175.26 cm) gr2 MDM: 23:55 Ventolin Inhaler 2 puffs Inhalation once; 1-2 puffs every 4-6hrs ordered. mo1 23:55 Amoxicillin 500 mg PO once ordered. mo1 23:55 Ibuprofen 800 mg PO once ordered. mo1 05/04 00:14 Financial registration complete. pm4 00:28 [facility] Payment Agreement was scanned into [employer] and attached to record. pm4 11:29 T-Sheet-- Draft Copy was scanned into [employer] and attached to record. gb Administered Medications: 00:10 Drug: Ventolin 2 puffs [Ventolin HFA 90 mcg/actuation aerosol inhaler (2 puffs)] Route: kmg1 Inhalation; 00:10 Drug: Amoxicillin 500 mg [amoxicillin 500 mg capsule (1 caps)] Route: PO; kmg1 00:10 Drug: Ibuprofen 800 mg [ibuprofen 800 mg tablet (1 tabs)] Route: PO; kmg1 Signatures: Jenna Negron RN RN kmg1 Tanya Grayson, Reg Reg gb Migue Fuentes PA PA mo1 Arnaud Sal, Reg Reg pm4 The chart was reviewed and I authenticate all verbal orders and agree with the evaluation and treatment provided.Attachments: 00:28 [facility] Payment Agreement pm4 11:29 T-Sheet-- Draft Copy gb Chart Complete MTDD
== END 2016-05-04 00:33 | disposition home or self-care (01) ==
LOC: M ED 23:34
DX: K04.7 Periapical abscess without sinus (principal); K02.9 Dental caries, unspecified; J44.9 Chronic obstructive pulmonary disease, unspecified; J45.909 Unspecified asthma, uncomplicated; Z79.51 Long term (current) use of inhaled steroids; F17.210 Nicotine dependence, cigarettes, uncomplicated

== ENCOUNTER 2016-05-08 15:17 | Emergency (ER) | payer SELFPAY ==
--- NOTE | 2016-05-08 16:36 | REP ---
CHEST, TWO VIEWS: COMPARISON: 02/15/2016 There is no evidence of acute infiltrate. No pleural effusion is seen. The heart is normal in size. The mediastinal silhouette is unremarkable. The visualized osseous structures are intact. IMPRESSION: No acute pulmonary disease. Signed by Vijay Huitron MD 05/08/2016 05:05 P
[2016-05-08] MEDS ORDERED: ALBUTEROL 90 MCG/ACT 8GM HFA INHALER As Ordered ONE (17:26)
[2016-05-08] MEDS ORDERED: predniSONE 20 MG TAB As Ordered ONE (17:26)
--- NOTE | 2016-05-08 17:38 | EDDOCDS ---
Physician Documentation [facility] Name: Aleksey Osullivan Age: 45 yrs Sex: Male : 1970 Arrival Date: 05/08/2016 Time: 15:17 Bed TR7 Private MD: NO PRIMARY PHYSICIAN, . Disposition: 05/08/16 17:26 Discharged to Home/Self Care. Impression: Acute bronchitis, Chronic obstructive pulmonary disease, unspecified. - Condition is Stable. - Discharge Instructions: Chronic Obstructive Pulmonary Disease, Acute Bronchitis, [id number]. - Prescriptions for Prednisone 20 mg Oral Tablet - take 3 tablet by ORAL route once daily for 5 days; 15 tablet. Albuterol Sulfate 90 mcg/actuation Inhalation HFA Aerosol Inhaler - inhale 2 puff by INHALATION route every 4 hours As needed; 1 Inhaler. ipratropium bromide 0.02 % Inhalation Solution - inhale 1 1/4 milliliter by INHALATION route 4 times per day; 1 box. Albuterol Sulfate 2.5 mg /3 mL (0.083 %) Inhalation Solution for Nebulization - inhale 1 unit by NEBULIZATION route 4 times per day As needed; 1 box. - Medication Reconciliation, Local Pharmacy Hours form. - [facility] ; When: 1 - 2 days; Reason: Recheck today's complaints, Continuance of care. Follow up: Emergency Department; Reason: Worsening of conditions. - Problem is new. - Symptoms have improved. Historical: - Allergies: no known allergies; - Home Meds: 1. albuterol sulfate 90 mcg/actuation Inhl HFAA 2 puffs as needed doesnt have enough $ 2. Symbicort 160-4.5 mcg/actuation inhalation HFAA 2 puffs 2 times per day doesnt have enough $ 3. amoxicillin 500 mg Oral cap 1 cap every 8 hours 4. ipratropium bromide 0.02 % inhalation soln 2.5 mL 3-4 times daily as needed - PMHx: Asthma; COPD; Seasonal Allergies; - PSHx: right leg surgery; Splenectomy; - Social history: Smoking status: Patient uses tobacco products, heavy tobacco smoker. No barriers to communication noted, The patient speaks fluent Yakut, Speaks appropriately for age. - Family history: Not pertinent. - : The pt / caregiver states he / she is not on anticoagulants. Home medication list is obtained from the patient. - Exposure Risk Screening:: None identified. Vital Signs: 05/08 15:19 BP 142 / 95; Pulse 94; Resp 18 S; Temp 96.4(O); Pulse Ox 96% on R/A; Weight 83.91 kg / dd6 184.99 lbs (R); Height 5 ft. 9 in. (175.26 cm) (R); 17:30 js13 15:19 Body Mass Index 27.32 (83.91 kg, 175.26 cm) dd6 17:30 Patient refused DC VS js13 MDM: 15:44 Chest, 2 View (pa\E\lat) Ordered. EDMS 17:22 Ventolin Inhaler 2 puffs Inhalation once ordered. ef1 17:22 MDI teaching with Spacer ordered. ef1 17:22 predniSONE 40 mg PO once; administer with food or milk ordered. ef1 Administered Medications: 17:25 CANCELLED (Patient Refused): Amoxicillin 500 mg PO once js13 17:34 Drug: Ventolin 2 puffs [Ventolin HFA 90 mcg/actuation aerosol inhaler (2 puffs)] Route: js13 Inhalation; 17:34 Drug: predniSONE 40 mg [prednisone 20 mg tablet (2 tabs)] Route: PO; js13 Signatures: Dispatcher [employer] EDMireille Shell PA-C PATuC ef1 Valerie Lloyd, RN RN hs1 Jacklyn Nelson RN RN js13 The chart was reviewed and I authenticate all verbal orders and agree with the evaluation and treatment provided.Corrections: (The following items were deleted from the chart) 17:25 17:22 Amoxicillin 500 mg PO once ordered. ef1 js13 MTDD
--- NOTE | 2016-05-08 17:38 | EDDOCDS ---
Nurse's Notes [facility] Name: Aleksey Osullivan Age: 45 yrs Sex: Male : 1970 Arrival Date: 05/08/2016 Time: 15:17 Bed TR7 Private MD: NO PRIMARY PHYSICIAN, . Diagnosis: Acute bronchitis;Chronic obstructive pulmonary disease, unspecified Presentation: 05/08 15:25 Presenting complaint: Patient states: just in here 1 week ago and has been here a hs1 couple of times. Patient states now cannot breath very well and is concerned for pneumonia. Patient states was given prescription and unable to fill for predinsone and another ABX. Patient unable to fill Duoneb prescription as well. Adult Sepsis Screening: The patient does not have new or worsening altered mentation. Patient's respiratory rate is less than 22. Systolic blood pressure is greater than 100. Patient has a qSOFA score of 0- Negative Sepsis Screen. Suicide/Homicide risk assessment- the patient denies having any suicidal and/or homicidal ideations and does not present with any other emotional, behavioral or mental health complaints. Status: Patient is not a director of community services or dependent. Transition of care: patient was not received from another setting of care. 15:25 Acuity: JORDIN Level 4 hs1 15:25 Method Of Arrival: Walkin/Carried/Asstd hs1 Triage Assessment: 15:29 General: Appears in no apparent distress, Behavior is appropriate for age, cooperative. hs1 Pain: Location: "lungs" Pain currently is 8 out of 10 on a pain scale. Quality of pain is described as burning. HIV screening NA for this visit Offered previously. Respiratory: Onset: The symptoms/episode began/occurred 3 days ago, Airway is patent Respiratory effort is even, unlabored. Historical: - Allergies: no known allergies; - Home Meds: 1. albuterol sulfate 90 mcg/actuation Inhl HFAA 2 puffs as needed doesnt have enough $ 2. Symbicort 160-4.5 mcg/actuation inhalation HFAA 2 puffs 2 times per day doesnt have enough $ 3. amoxicillin 500 mg Oral cap 1 cap every 8 hours 4. ipratropium bromide 0.02 % inhalation soln 2.5 mL 3-4 times daily as needed - PMHx: Asthma; COPD; Seasonal Allergies; - PSHx: right leg surgery; Splenectomy; - Social history: Smoking status: Patient uses tobacco products, heavy tobacco smoker. No barriers to communication noted, The patient speaks fluent South Korean, Speaks appropriately for age. - Family history: Not pertinent. - : The pt / caregiver states he / she is not on anticoagulants. Home medication list is obtained from the patient. - Exposure Risk Screening:: None identified. Screenin:29 Screening information is obtained from the patient. Fall risk: No risks identified. js13 Assistance ADL's: requires no assistance with activities of daily living. Abuse/DV Screen: The patient / caregiver reports he/she is: not in a situation that causes fear, pain or injury. Nutritional screening: No deficits noted. Advance Directives: There is no active DNR order. home support is adequate. Assessment: 17:29 General: Appears in no apparent distress, Behavior is appropriate for age, cooperative. js13 Pain: Denies pain. Neurological: Level of Consciousness is awake, alert. Cardiovascular: Chest pain is denied. Respiratory: Airway is patent Respiratory effort is even, unlabored, Respiratory pattern is regular, symmetrical, Breath sounds with wheezes. Derm: Skin is pink, warm & dry. Vital Signs: 15:19 BP 142 / 95; Pulse 94; Resp 18 S; Temp 96.4(O); Pulse Ox 96% on R/A; Weight 83.91 kg dd6 (R); Height 5 ft. 9 in. (175.26 cm) (R); 17:30 js13 15:19 Body Mass Index 27.32 (83.91 kg, 175.26 cm) dd6 17:30 Patient refused DC VS js13 Vitals: 15:19 Log In Time: May 08, 2016 at 15:17. dd6 ED Course: 15:19 Patient visited by Luis Treviño PCA. dd6 15:19 NO PRIMARY PHYSICIAN, . is Private Physician. dd6 15:19 Patient moved to Waiting dd6 15:20 Patient moved to Pre RCE dd6 15:28 Triage Initiated hs1 16:49 Patient moved to Triage 2 ar3 16:51 Mireille Noel PA-C is [facility]. ef1 16:51 Nella Grullon MD is Attending Physician. ef1 16:57 Patient visited by Mireille Noel PA-C. ef1 17:14 Chest, 2 View (pa\\E\\lat) Returned. EDMS 17:26 [facility] is Referral Physician. ef1 17:29 The patient / caregiver is instructed regarding the plan of care and ED course. js13 17:29 No IV's were initiated during this patient's visit. No procedures done that require js13 assistance. 17:33 Patient moved to TR1 ef1 17:34 Patient moved to TR7 ar3 Administered Medications: 17:25 CANCELLED (Patient Refused): Amoxicillin 500 mg PO once js13 17:34 Drug: Ventolin 2 puffs [Ventolin HFA 90 mcg/actuation aerosol inhaler (2 puffs)] Route: js13 Inhalation; 17:34 Drug: predniSONE 40 mg [prednisone 20 mg tablet (2 tabs)] Route: PO; js13 Order Results: Radiology Order: Chest, 2 View (pa\\E\\lat) Test: Chest, 2 View (pa\\E\\lat) REASON FOR EXAMINATION: Cough; CHEST, TWO VIEWS:; ; COMPARISON: 02/15/2016; ; There is no evidence of acute infiltrate.; ; No pleural effusion is seen.; ; The heart is normal in size.; ; The mediastinal silhouette is unremarkable.; ; The visualized osseous structures are intact.; ; IMPRESSION:; ; No acute pulmonary disease.; ; ; ; Unreviewed; Outcome: 17:26 Discharge ordered by Provider. ef1 17:29 Discharge Assessment: Patient awake, alert and oriented x 3. No cognitive and/or js13 functional deficits noted. Patient verbalized understanding of disposition instructions. patient administered narcotics - no. The following High Risk Discharge criteria are identified: None. Discharged to home ambulatory. Condition: stable. Discharge instructions given to patient, Instructed on discharge instructions, follow up and referral plans. medication usage, Demonstrated understanding of instructions, medications, Pt was receptive of discharge instructions/ teaching. No special radiology studies were completed. Property :Personal belongings accompany Pt. 17:31 Prescriptions given X 4. js13 17:38 Patient left the ED. js13 Signatures: Dispatcher [employer] EDCO Luis Treviño, GUARD DRIVER GUARD DRIVER dd6 Mireille Noel, PA-C PA-C ef1 Yuki Winston, GUARD DRIVER GUARD DRIVER ar3 Valerie Lloyd RN RN hs1 Nelson,Jacklyn,RN RN js13 MTDD
--- NOTE | 2016-05-10 18:39 | EDDOCDS ---
Nurse's Notes [facility] Name: Aleksey Osullivan Age: 45 yrs Sex: Male : 1970 Arrival Date: 05/08/2016 Time: 15:17 Bed TR7 Private MD: NO PRIMARY PHYSICIAN, . Diagnosis: Acute bronchitis;Chronic obstructive pulmonary disease, unspecified Presentation: 05/08 15:25 Presenting complaint: Patient states: just in here 1 week ago and has been here a hs1 couple of times. Patient states now cannot breath very well and is concerned for pneumonia. Patient states was given prescription and unable to fill for predinsone and another ABX. Patient unable to fill Duoneb prescription as well. Adult Sepsis Screening: The patient does not have new or worsening altered mentation. Patient's respiratory rate is less than 22. Systolic blood pressure is greater than 100. Patient has a qSOFA score of 0- Negative Sepsis Screen. Suicide/Homicide risk assessment- the patient denies having any suicidal and/or homicidal ideations and does not present with any other emotional, behavioral or mental health complaints. Status: Patient is not a director service or dependent. Transition of care: patient was not received from another setting of care. 15:25 Acuity: JORDIN Level 4 hs1 15:25 Method Of Arrival: Walkin/Carried/Asstd hs1 Triage Assessment: 15:29 General: Appears in no apparent distress, Behavior is appropriate for age, cooperative. hs1 Pain: Location: "lungs" Pain currently is 8 out of 10 on a pain scale. Quality of pain is described as burning. HIV screening NA for this visit Offered previously. Respiratory: Onset: The symptoms/episode began/occurred 3 days ago, Airway is patent Respiratory effort is even, unlabored. Historical: - Allergies: no known allergies; - Home Meds: 1. albuterol sulfate 90 mcg/actuation Inhl HFAA 2 puffs as needed doesnt have enough $ 2. Symbicort 160-4.5 mcg/actuation inhalation HFAA 2 puffs 2 times per day doesnt have enough $ 3. amoxicillin 500 mg Oral cap 1 cap every 8 hours 4. ipratropium bromide 0.02 % inhalation soln 2.5 mL 3-4 times daily as needed - PMHx: Asthma; COPD; Seasonal Allergies; - PSHx: right leg surgery; Splenectomy; - Social history: Smoking status: Patient uses tobacco products, heavy tobacco smoker. No barriers to communication noted, The patient speaks fluent Andorran, Speaks appropriately for age. - Family history: Not pertinent. - : The pt / caregiver states he / she is not on anticoagulants. Home medication list is obtained from the patient. - Exposure Risk Screening:: None identified. Screenin:29 Screening information is obtained from the patient. Fall risk: No risks identified. js13 Assistance ADL's: requires no assistance with activities of daily living. Abuse/DV Screen: The patient / caregiver reports he/she is: not in a situation that causes fear, pain or injury. Nutritional screening: No deficits noted. Advance Directives: There is no active DNR order. home support is adequate. Assessment: 17:29 General: Appears in no apparent distress, Behavior is appropriate for age, cooperative. js13 Pain: Denies pain. Neurological: Level of Consciousness is awake, alert. Cardiovascular: Chest pain is denied. Respiratory: Airway is patent Respiratory effort is even, unlabored, Respiratory pattern is regular, symmetrical, Breath sounds with wheezes. Derm: Skin is pink, warm & dry. Vital Signs: 15:19 BP 142 / 95; Pulse 94; Resp 18 S; Temp 96.4(O); Pulse Ox 96% on R/A; Weight 83.91 kg dd6 (R); Height 5 ft. 9 in. (175.26 cm) (R); 17:30 js13 15:19 Body Mass Index 27.32 (83.91 kg, 175.26 cm) dd6 17:30 Patient refused DC VS js13 Vitals: 15:19 Log In Time: May 08, 2016 at 15:17. dd6 ED Course: 15:19 Patient visited by uLis Treviño PCA. dd6 15:19 NO PRIMARY PHYSICIAN, . is Private Physician. dd6 15:19 Patient moved to Waiting dd6 15:20 Patient moved to Pre RCE dd6 15:28 Triage Initiated hs1 16:49 Patient moved to Triage 2 ar3 16:51 [facility] ef1 16:51 Nella Grullon MD is Attending Physician. ef1 16:57 Patient visited by Mireille Noel PA-C. ef1 17:14 Chest, 2 View (pa\\E\\lat) Returned. [facility] 17:26 [facility] is Referral Physician. ef1 17:29 The patient / caregiver is instructed regarding the plan of care and ED course. js13 17:29 No IV's were initiated during this patient's visit. No procedures done that require js13 assistance. 17:33 Patient moved to TR1 ef1 17:34 Patient moved to TR7 ar3 05/09 12:53 T-Sheet-- Draft Copy was scanned into [employer] and attached to record. gb 12:54 Radiology Report was scanned into [employer] and attached to record. gb Administered Medications: 05/08 17:25 CANCELLED (Patient Refused): Amoxicillin 500 mg PO once js13 17:34 Drug: Ventolin 2 puffs [Ventolin HFA 90 mcg/actuation aerosol inhaler (2 puffs)] Route: js13 Inhalation; 17:34 Drug: predniSONE 40 mg [prednisone 20 mg tablet (2 tabs)] Route: PO; js13 Order Results: Radiology Order: Chest, 2 View (pa\\E\\lat) Test: Chest, 2 View (pa\\E\\lat) REASON FOR EXAMINATION: Cough; CHEST, TWO VIEWS:; ; COMPARISON: 02/15/2016; ; There is no evidence of acute infiltrate.; ; No pleural effusion is seen.; ; The heart is normal in size.; ; The mediastinal silhouette is unremarkable.; ; The visualized osseous structures are intact.; ; IMPRESSION:; ; No acute pulmonary disease.; ; ; Signed by; Vijay Huitron MD 05/08/2016 05:05 P; Outcome: 17:26 Discharge ordered by Provider. ef1 17:29 Discharge Assessment: Patient awake, alert and oriented x 3. No cognitive and/or js13 functional deficits noted. Patient verbalized understanding of disposition instructions. patient administered narcotics - no. The following High Risk Discharge criteria are identified: None. Discharged to home ambulatory. Condition: stable. Discharge instructions given to patient, Instructed on discharge instructions, follow up and referral plans. medication usage, Demonstrated understanding of instructions, medications, Pt was receptive of discharge instructions/ teaching. No special radiology studies were completed. Property :Personal belongings accompany Pt. 17:31 Prescriptions given X 4. js13 17:38 Patient left the ED. js13 Signatures: Dispatcher [employer] Tanya Urias, Reg Reg gb Luis Treviño, RETAIL AND RESTAURANT ASSOCIATE RETAIL AND RESTAURANT ASSOCIATE dd6 Mireille Noel, PA-C PA-C ef1 Yuki Winston, RETAIL AND RESTAURANT ASSOCIATE RETAIL AND RESTAURANT ASSOCIATE ar3 Valerie Lloyd, RN RN hs1 Jacklyn Nelson,RN RN js13 Chart Complete MTDD
--- NOTE | 2016-05-10 18:39 | EDDOCDS ---
Physician Documentation [facility] Name: Aleksey Osullivan Age: 45 yrs Sex: Male : 1970 Arrival Date: 05/08/2016 Time: 15:17 Bed TR7 Private MD: NO PRIMARY PHYSICIAN, . Disposition: 05/08/16 17:26 Discharged to Home/Self Care. Impression: Acute bronchitis, Chronic obstructive pulmonary disease, unspecified. - Condition is Stable. - Discharge Instructions: Chronic Obstructive Pulmonary Disease, Acute Bronchitis, [id number]. - Prescriptions for Prednisone 20 mg Oral Tablet - take 3 tablet by ORAL route once daily for 5 days; 15 tablet. Albuterol Sulfate 90 mcg/actuation Inhalation HFA Aerosol Inhaler - inhale 2 puff by INHALATION route every 4 hours As needed; 1 Inhaler. ipratropium bromide 0.02 % Inhalation Solution - inhale 1 1/4 milliliter by INHALATION route 4 times per day; 1 box. Albuterol Sulfate 2.5 mg /3 mL (0.083 %) Inhalation Solution for Nebulization - inhale 1 unit by NEBULIZATION route 4 times per day As needed; 1 box. - Medication Reconciliation, Local Pharmacy Hours form. - [facility]: [facility] ; When: 1 - 2 days; Reason: Recheck today's complaints, Continuance of care. Follow up: Emergency Department; Reason: Worsening of conditions. - Problem is new. - Symptoms have improved. - Notes: Pt yelling at the top of his lungs while on the phonewhen I walked into the room to examine him. Pt wouldn't get off of the phone when I asked him to. I told the person in the room with him to get me when he's off of the phone. A few minutes later he got off of the phone and I went into room T-2. Pt starting yelling at me for his 1 hour wait before he was seen as he was 'short of breath'. Pt was speaking in full paragraphs at a time and oxygenating well. I gave pt his refills for COPD meds and discussed Chest x-ray results with him. Pt wanted an inhaler to take home and a 'few boxes of albuterol neb treatments' to take home with him. I explained that we can't do that since the pharmacies are open. He said it was too expensive. I gave him an inhaler for take home use. Pt calmed down and seemed somewhat satisfied with his treatment today. Pt calmed down and quit yelling and was discharged. Historical: - Allergies: no known allergies; - Home Meds: 1. albuterol sulfate 90 mcg/actuation Inhl HFAA 2 puffs as needed doesnt have enough $ 2. Symbicort 160-4.5 mcg/actuation inhalation HFAA 2 puffs 2 times per day doesnt have enough $ 3. amoxicillin 500 mg Oral cap 1 cap every 8 hours 4. ipratropium bromide 0.02 % inhalation soln 2.5 mL 3-4 times daily as needed - PMHx: Asthma; COPD; Seasonal Allergies; - PSHx: right leg surgery; Splenectomy; - Social history: Smoking status: Patient uses tobacco products, heavy tobacco smoker. No barriers to communication noted, The patient speaks fluent Sudanese, Speaks appropriately for age. - Family history: Not pertinent. - : The pt / caregiver states he / she is not on anticoagulants. Home medication list is obtained from the patient. - Exposure Risk Screening:: None identified. Vital Signs: 05/08 15:19 BP 142 / 95; Pulse 94; Resp 18 S; Temp 96.4(O); Pulse Ox 96% on R/A; Weight 83.91 kg / dd6 184.99 lbs (R); Height 5 ft. 9 in. (175.26 cm) (R); 17:30 js13 15:19 Body Mass Index 27.32 (83.91 kg, 175.26 cm) dd6 17:30 Patient refused DC VS js13 MDM: 15:44 Chest, 2 View (pa\E\lat) Ordered. EDMS 17:22 Ventolin Inhaler 2 puffs Inhalation once ordered. ef1 17:22 MDI teaching with Spacer ordered. ef1 17:22 predniSONE 40 mg PO once; administer with food or milk ordered. ef1 05/09 12:53 T-Sheet-- Draft Copy was scanned into [employer] and attached to record. gb 12:54 Radiology Report was scanned into [employer] and attached to record. gb Administered Medications: 05/08 17:25 CANCELLED (Patient Refused): Amoxicillin 500 mg PO once js13 17:34 Drug: Ventolin 2 puffs [Ventolin HFA 90 mcg/actuation aerosol inhaler (2 puffs)] Route: js13 Inhalation; 17:34 Drug: predniSONE 40 mg [prednisone 20 mg tablet (2 tabs)] Route: PO; js13 Signatures: Dispatcher [employer] EDTanya Wilcox, Reg Reg gb Mireille Noel, HENRIETTA SHRESHTA ef1 Valerie Lloyd, RN RN hs1 Jacklyn Nelson RN RN js13 The chart was reviewed and I authenticate all verbal orders and agree with the evaluation and treatment provided.Corrections: (The following items were deleted from the chart) 17:25 17:22 Amoxicillin 500 mg PO once ordered. ef1 js13 Attachments: 05/09 12:53 T-Sheet-- Draft Copy gb Chart Complete MTDD
--- NOTE | 2016-05-10 18:39 | EDDOCDS ---
Physician Documentation [facility] Name: Aleksey Osullivan Age: 45 yrs Sex: Male : 1970 Arrival Date: 05/08/2016 Time: 15:17 Bed TR7 Private MD: NO PRIMARY PHYSICIAN, . Disposition: 05/08/16 17:26 Discharged to Home/Self Care. Impression: Acute bronchitis, Chronic obstructive pulmonary disease, unspecified. - Condition is Stable. - Discharge Instructions: Chronic Obstructive Pulmonary Disease, Acute Bronchitis, [id number]. - Prescriptions for Prednisone 20 mg Oral Tablet - take 3 tablet by ORAL route once daily for 5 days; 15 tablet. Albuterol Sulfate 90 mcg/actuation Inhalation HFA Aerosol Inhaler - inhale 2 puff by INHALATION route every 4 hours As needed; 1 Inhaler. ipratropium bromide 0.02 % Inhalation Solution - inhale 1 1/4 milliliter by INHALATION route 4 times per day; 1 box. Albuterol Sulfate 2.5 mg /3 mL (0.083 %) Inhalation Solution for Nebulization - inhale 1 unit by NEBULIZATION route 4 times per day As needed; 1 box. - Medication Reconciliation, Local Pharmacy Hours form. - [facility]: [facility] ; When: 1 - 2 days; Reason: Recheck today's complaints, Continuance of care. Follow up: Emergency Department; Reason: Worsening of conditions. - Problem is new. - Symptoms have improved. - Notes: Pt yelling at the top of his lungs while on the phonewhen I walked into the room to examine him. Pt wouldn't get off of the phone when I asked him to. I told the person in the room with him to get me when he's off of the phone. A few minutes later he got off of the phone and I went into room T-2. Pt starting yelling at me for his 1 hour wait before he was seen as he was 'short of breath'. Pt was speaking in full paragraphs at a time and oxygenating well. I gave pt his refills for COPD meds and discussed Chest x-ray results with him. Pt wanted an inhaler to take home and a 'few boxes of albuterol neb treatments' to take home with him. I explained that we can't do that since the pharmacies are open. He said it was too expensive. I gave him an inhaler for take home use. Pt calmed down and seemed somewhat satisfied with his treatment today. Pt calmed down and quit yelling and was discharged. Historical: - Allergies: no known allergies; - Home Meds: 1. albuterol sulfate 90 mcg/actuation Inhl HFAA 2 puffs as needed doesnt have enough $ 2. Symbicort 160-4.5 mcg/actuation inhalation HFAA 2 puffs 2 times per day doesnt have enough $ 3. amoxicillin 500 mg Oral cap 1 cap every 8 hours 4. ipratropium bromide 0.02 % inhalation soln 2.5 mL 3-4 times daily as needed - PMHx: Asthma; COPD; Seasonal Allergies; - PSHx: right leg surgery; Splenectomy; - Social history: Smoking status: Patient uses tobacco products, heavy tobacco smoker. No barriers to communication noted, The patient speaks fluent Belizean, Speaks appropriately for age. - Family history: Not pertinent. - : The pt / caregiver states he / she is not on anticoagulants. Home medication list is obtained from the patient. - Exposure Risk Screening:: None identified. Vital Signs: 05/08 15:19 BP 142 / 95; Pulse 94; Resp 18 S; Temp 96.4(O); Pulse Ox 96% on R/A; Weight 83.91 kg / dd6 184.99 lbs (R); Height 5 ft. 9 in. (175.26 cm) (R); 17:30 js13 15:19 Body Mass Index 27.32 (83.91 kg, 175.26 cm) dd6 17:30 Patient refused DC VS js13 MDM: 15:44 Chest, 2 View (pa\E\lat) Ordered. EDMS 17:22 Ventolin Inhaler 2 puffs Inhalation once ordered. ef1 17:22 MDI teaching with Spacer ordered. ef1 17:22 predniSONE 40 mg PO once; administer with food or milk ordered. ef1 05/09 12:53 T-Sheet-- Draft Copy was scanned into [employer] and attached to record. gb 12:54 Radiology Report was scanned into [employer] and attached to record. gb Administered Medications: 05/08 17:25 CANCELLED (Patient Refused): Amoxicillin 500 mg PO once js13 17:34 Drug: Ventolin 2 puffs [Ventolin HFA 90 mcg/actuation aerosol inhaler (2 puffs)] Route: js13 Inhalation; 17:34 Drug: predniSONE 40 mg [prednisone 20 mg tablet (2 tabs)] Route: PO; js13 Signatures: Dispatcher [employer] EDTanya Wilcox, Reg Reg gb Mireille Noel, HENRIETTA SHRESTHA ef1 Valerie Lloyd, RN RN hs1 Jacklyn Nelson RN RN js13 The chart was reviewed and I authenticate all verbal orders and agree with the evaluation and treatment provided.Corrections: (The following items were deleted from the chart) 17:25 17:22 Amoxicillin 500 mg PO once ordered. ef1 js13 Attachments: 05/09 12:53 T-Sheet-- Draft Copy gb Chart Complete MTDD
== END 2016-05-08 17:38 | disposition home or self-care (01) ==
LOC: M ED 15:17
DX: J44.0 Chronic obstructive pulmonary disease with (acute) lower respiratory infection (principal); Z90.89 Acquired absence of other organs; F17.200 Nicotine dependence, unspecified, uncomplicated

== ENCOUNTER 2016-05-18 20:17 | Emergency (ER) | payer SELFPAY ==
[2016-05-18] MEDS ORDERED: IPRATROPIUM 0.5MG/ALBUTEROL 2.5MG INH SOL UD 3ML (DUONEB)(J7620) As Ordered ONE ×3 (20:53→21:10)
[2016-05-18 21:19] LABS: BASO # 0.1 K/mm3 (0.0-0.2); BASO % 0.8 % (0.0-1.0); EOS # 1.3 K/mm3 (0.0-0.50); LARGE UNSTAINED CELL # 0.3 K/mm3 (0.0-0.4); LARGE UNSTAINED CELL % 2.3 % (0.0-4.0); LYMPH # 4.3 K/mm3 (1.5-4.5); LYMPH % 35.2 % (24.0-44.0); MEAN CORPUSCULAR HEMOGLOBIN 30.5 pg (27.0-33.0); MEAN CORPUSCULAR HGB CONC 33.9 g/dl (32.0-36.5); MONO # 0.7 K/mm3 (0.0-0.8); MONO % 5.5 % (0.0-5.0); NEUTROPHILS # 5.5 K/mm3 (1.8-7.7); NEUTROPHILS % 45.1 % (36.0-66.0); PLATELET COUNT, AUTOMATED 422 k/mm3 (150-450); RED CELL DISTRIBUTION WIDTH 13.6 % (11.5-14.5); WHITE BLOOD COUNT 12.1 K/mm3 (4.0-10.0)
[2016-05-18] MEDS ORDERED: methylPREDNISolone INJ 125 MG/2 ML VIAL (J2930) As Ordered ONE (21:19)
[2016-05-18 21:28] LABS: ANION GAP 7 MEQ/L (8-16); BLOOD UREA NITROGEN 15 MG/DL (7-18); CALCIUM LEVEL 8.4 MG/DL (8.5-10.1); CARBON DIOXIDE LEVEL 27 MEQ/L (21-32); CHLORIDE LEVEL 105 MEQ/L (98-107); CREATININE FOR GFR 0.97 MG/DL (0.70-1.30); GLOMERULAR FILTRATION RATE > 60.0 (>60); GLUCOSE, FASTING 109 MG/DL (70-105); POTASSIUM SERUM 3.9 MEQ/L (3.5-5.1); SODIUM LEVEL 139 MEQ/L (136-145)
[2016-05-18] MEDS ORDERED: ALBUTEROL 90 MCG/ACT 8GM HFA INHALER As Ordered ONE (22:09)
--- NOTE | 2016-05-18 22:24 | EDDOCDS ---
Physician Documentation [facility] Name: Aleksey Osullivan Age: 45 yrs Sex: Male : 1970 Arrival Date: 05/18/2016 Time: 20:17 Bed 9 Private MD: Disposition: 05/18/16 22:11 Discharged to Home/Self Care. Impression: Chronic obstructive pulmonary disease with (acute) exacerbation. - Condition is Stable. - Discharge Instructions: Chronic Obstructive Pulmonary Disease. - Prescriptions for Albuterol Sulfate 2.5 mg /3 mL (0.083 %) Inhalation Solution for Nebulization - inhale 1 unit by NEBULIZATION route 4 times per day As needed; 1 box. Prednisone 20 mg Oral Tablet - take 2 tablets by ORAL route once daily for 4 days; 8 tablet. - Medication Reconciliation, Local Pharmacy Hours form. - Follow up: Private Physician; When: 1 week; Reason: Recheck today's complaints. - Problem is an acute exacerbation. - Symptoms have improved. - Notes: You were seen in the ED for shortness of breath and wheezing concerning for an exacerbation of your COPD. Bloodwork, chest XRay and EKG of the heart showed no other acute findings. You were treated and improved with breathing treatment and steroids. As you are feeling better you may return home to follow up with your doctor when you return to the [facility] in 1 week - please call in the morning to arrange to be seen. You may continue your nebulizers as needed and may take the Prednisone as directed. Return to the ED for any return of trouble breathing, chest pain, fever, or any other concerns. Historical: - Allergies: no known allergies; - Home Meds: 1. albuterol sulfate 90 mcg/actuation Inhl HFAA 2 puffs as needed doesnt have enough $ 2. ipratropium bromide 0.02 % inhalation soln 2.5 mL 3-4 times daily as needed 3. Symbicort 160-4.5 mcg/actuation inhalation HFAA 2 puffs 2 times per day doesnt have enough $ - PMHx: Asthma; COPD; Seasonal Allergies; - PSHx: right leg surgery; Splenectomy; - Social history: No barriers to communication noted, The patient speaks fluent Albanian, Speaks appropriately for age, Smoking status: Patient uses tobacco products, heavy tobacco smoker. - Family history: Not pertinent. - : The pt / caregiver states he / she is not on anticoagulants. The pt / caregiver states he / she is not on anticoagulants. Home medication list is obtained from the patient. - Exposure Risk Screening:: None identified. Vital Signs: 05/18 20:28 Pulse Ox 98% on 2 lpm NC; ajs 20:28 BP 123 / 84; Pulse 85; Resp 24; Temp 96.4; Pulse Ox 92% on R/A; Weight 83.91 kg / ajs 184.99 lbs; Height 5 ft. 9 in. (175.26 cm); Pain 0/10; 20:44 BP 127 / 84 (auto/); kas2 20:44 Pulse 74 MON; Pulse Ox 94% ; kas2 20:55 BP 136 / 74 (auto/); kas2 20:55 Pulse 84 MON; Pulse Ox 94% ; kas2 21:10 BP 124 / 57 (auto/); kas2 21:10 Pulse 72 MON; Pulse Ox 94% ; kas2 21:25 BP 120 / 73 (auto/); kas2 21:25 Pulse 68 MON; Pulse Ox 93% ; kas2 22:22 BP 125 / 72; Pulse 68; Resp 20; Temp 97.6(O); Pulse Ox 95% on R/A; Pain 0/10; kas2 20:28 Body Mass Index 27.32 (83.91 kg, 175.26 cm) aj MDM: 21:07 [employer] Emergency Services Manager/Pulse Ox/q 30 min VS ordered. br1 21:07 IV Saline Lock ordered. br1 21:07 Rhythm Strip to chart ordered. br1 21:07 Undress patient appropriately for examination ordered. br1 21:07 Albuterol-Ipratropium 1 neb Nebulizer every 20 minutes x3 ordered. br1 21:07 Solu-MEDROL 125 mg IVP once ordered. br1 21:07 Call Respiratory ordered. br1 21:08 Call Respiratory complete. mdr 21:08 Chest, 2 View (pa\E\lat) Ordered. EDMS 21:08 B-Type Natiuretic Peptide Ordered. EDMS 21:08 Basic Metabolic Profile Ordered. EDMS 21:08 CBC with Diff Ordered. EDMS 21:08 Cardiac Injury Profile Ordered. EDMS 21:08 Troponin Ordered. EDMS 21:08 ECG WITH READING ER PHYS+CARDIAG ordered. EDMS 21:31 Basic Metabolic Profile Reviewed. br1 21:31 CBC with Diff Reviewed. br1 21:31 Cardiac Injury Profile Reviewed. br1 21:31 Troponin Reviewed. br1 21:46 B-Type Natiuretic Peptide Reviewed. br1 21:47 Ambulate Patient [facility] Pulse Oximetry ordered. br1 22:07 Ventolin Inhaler 2 puffs Inhalation once ordered. br1 22:09 Financial registration complete. zo Administered Medications: 20:52 Drug: Albuterol-Ipratropium 1 neb [ipratropium-albuterol 0.5 mg-3 mg(2.5 mg base)/3 mL jc3 nebulization soln (1 neb)] Route: Nebulizer; 21:08 Drug: Albuterol-Ipratropium 1 neb [ipratropium-albuterol 0.5 mg-3 mg(2.5 mg base)/3 mL jc3 nebulization soln (1 neb)] Route: Nebulizer; 21:18 Drug: Albuterol-Ipratropium 1 neb [ipratropium-albuterol 0.5 mg-3 mg(2.5 mg base)/3 mL jc3 nebulization soln (1 neb)] Route: Nebulizer; 21:23 Drug: Solu-MEDROL 125 mg [Solu-Medrol 500 mg intravenous solution (125 mg)] Route: IVP; kas2 Site: right antecubital; 22:15 Drug: Ventolin 2 puffs [Ventolin HFA 90 mcg/actuation aerosol inhaler (2 puffs)] Route: kas2 Inhalation; Signatures: Dispatcher [employer] Jacklyn Barragan RN RN [id number] Ovidio Flores Brian, MD MD br1 Carlee Wilde RN RN sls1 Asim Ayala, JUAN [employer] COMMERCIAL ARTIST Cate Zhu RN RN kas2 Awais Pandey jc3 MTDD
--- NOTE | 2016-05-18 22:24 | EDDOCDS ---
Nurse's Notes [facility] Name: Aleksey Osullivan Age: 45 yrs Sex: Male : 1970 Arrival Date: 05/18/2016 Time: 20:17 Bed 9 Private MD: Diagnosis: Chronic obstructive pulmonary disease with (acute) exacerbation Presentation: 05/18 20:28 Presenting complaint: Pt presented to Ed stating that he could not breathe. Not moving jo3 much air in triage. POX 92%. Adult Sepsis Screening: The patient does not have new or worsening altered mentation. Patient has a respiratory rate of greater than or equal to 22 (1 point). Systolic blood pressure is greater than 100. Patient has a qSOFA score of 0- Negative Sepsis Screen. Suicide/Homicide risk assessment- the patient denies having any suicidal and/or homicidal ideations and does not present with any other emotional, behavioral or mental health complaints. Status: Patient is not a senior professional services consultant or dependent. Transition of care: patient was not received from another setting of care. 20:28 Acuity: JORDIN Level 3 jo3 20:28 Method Of Arrival: Walkin/Carried/Asstd jo3 20:28 Presenting complaint: Patient states: Patient states breathing has been getting worse kas2 all week. Productive cough. History of COPD. Denies chest pain or shortness of breath. Adult Sepsis Screening: The patient does not have new or worsening altered mentation. Patient's respiratory rate is less than 22. Systolic blood pressure is greater than 100. Patient has a qSOFA score of 0- Negative Sepsis Screen. Suicide/Homicide risk assessment- the patient denies having any suicidal and/or homicidal ideations and does not present with any other emotional, behavioral or mental health complaints. Status: Patient is not a senior professional services consultant or dependent. Transition of care: patient was not received from another setting of care. 20:28 Acuity: JORDIN Level 3 kas2 20:28 Method Of Arrival: Walkin/Carried/Asstd kas2 Triage Assessment: 20:31 General: Appears distressed, uncomfortable, well nourished, well groomed, Behavior is kas2 anxious, appropriate for age, cooperative. Pain: Location: chest Pain currently is 10 out of 10 on a pain scale. Pain does not radiate. Pt Declines HIV testing. Neurological: Level of Consciousness is awake, alert, Oriented to person, place, time. Cardiovascular: Capillary refill < 3 seconds Heart tones S1 S2 present Rhythm is sinus rhythm No ectopy. Respiratory: Airway is patent Respiratory effort is labored, with nasal flaring, with retractions, Breath sounds are diminished bilaterally. Breath sounds with wheezes inspiratory expiratory bilaterally. Derm: Skin is intact, Skin is dry, Skin is pink, warm & dry. Skin temperature is warm. 22:22 Respiratory: Onset: The symptoms/episode began/occurred suddenly. [facility] Historical: - Allergies: no known allergies; - Home Meds: 1. albuterol sulfate 90 mcg/actuation Inhl HFAA 2 puffs as needed doesnt have enough $ 2. ipratropium bromide 0.02 % inhalation soln 2.5 mL 3-4 times daily as needed 3. Symbicort 160-4.5 mcg/actuation inhalation HFAA 2 puffs 2 times per day doesnt have enough $ - PMHx: Asthma; COPD; Seasonal Allergies; - PSHx: right leg surgery; Splenectomy; - Social history: No barriers to communication noted, The patient speaks fluent Lithuanian, Speaks appropriately for age, Smoking status: Patient uses tobacco products, heavy tobacco smoker. - Family history: Not pertinent. - : The pt / caregiver states he / she is not on anticoagulants. The pt / caregiver states he / she is not on anticoagulants. Home medication list is obtained from the patient. - Exposure Risk Screening:: None identified. Screenin:34 Screening information is obtained from the patient. Fall risk: No risks identified. [facility] Assistance ADL's: requires no assistance with activities of daily living. Abuse/DV Screen: The patient / caregiver reports he/she is: not in a situation that causes fear, pain or injury. Nutritional screening: No deficits noted. Advance Directives: Currently, there is no health care proxy. There is no active DNR order. There is no living will. There is no Power of Claim Processor. home support is adequate. Assessment: 20:33 General: See triage note.. [facility] 20:47 General: Patient is not wanting to wear his oxygen and is screaming profanities to the [facility] RN. RN told patient he needs to comply with our medical advice and wear his oxygen or he would have to sign out AMA. Patient decided to keep oxygen on. Dr. Otoole aware.. 21:39 General: Patient took himself off the monitor and refusing to go back on. Wanting to [facility] leave. Dr. Otoole aware.. 21:40 General: Appears in no apparent distress, comfortable. Pain: Denies pain. Neurological: [facility] Level of Consciousness is awake, alert, Oriented to person, place, time. Cardiovascular: Rhythm is sinus rhythm No ectopy. Respiratory: Airway is patent Respiratory effort is unlabored, Respiratory pattern is regular, symmetrical, Breath sounds are diminished bilaterally. Breath sounds with wheezes expiratory. Derm: Skin is intact, Skin is dry, Skin is pink, warm & dry. Skin temperature is warm. 22:08 General: Dr. Otoole in to talk with patient at this time.. [facility] Vital Signs: 20:28 Pulse Ox 98% on 2 lpm NC; ajs 20:28 BP 123 / 84; Pulse 85; Resp 24; Temp 96.4; Pulse Ox 92% on R/A; Weight 83.91 kg; Height [facility] 5 ft. 9 in. (175.26 cm); Pain 0/10; 20:44 BP 127 / 84 (auto/); kas2 20:44 Pulse 74 MON; Pulse Ox 94% ; kas2 20:55 BP 136 / 74 (auto/); kas2 20:55 Pulse 84 MON; Pulse Ox 94% ; kas2 21:10 BP 124 / 57 (auto/); kas2 21:10 Pulse 72 MON; Pulse Ox 94% ; kas2 21:25 BP 120 / 73 (auto/); kas2 21:25 Pulse 68 MON; Pulse Ox 93% ; kas2 22:22 BP 125 / 72; Pulse 68; Resp 20; Temp 97.6(O); Pulse Ox 95% on R/A; Pain 0/10; kas2 20:28 Body Mass Index 27.32 (83.91 kg, 175.26 cm) [facility] Vitals: 22:22 Log In Time: May 18, 2016 at 20:20. [facility] ED Course: 20:18 Patient visited by Maribel Hutchinson. gjb 20:18 Patient moved to Waiting gjb 20:23 Cate Glez,RN is Primary Nurse. sls1 20:23 Patient moved to 9 sls1 20:29 Triage Initiated jo3 20:30 Patient visited by Jacki Bear. ajs 20:34 Patient visited by Cate Glez RN. kas2 20:46 Inserted saline lock: 20 gauge in right antecubital area and blood collected. The kas2 patient tolerated the procedure well. No procedures done that require assistance. 20:49 Patient visited by Cate Glez RN. kas2 20:57 Clarence Otoole MD is Attending Physician. br1 21:06 Patient visited by Clarence Otoole MD. br1 21:11 B-Type Natiuretic Peptide Sent. kas2 21:11 Cardiac Injury Profile Sent. kas2 21:11 Troponin Sent. kas2 21:16 Patient visited by Ml Martinez PCA. rs6 21:16 EKG done. (by ED staff). Reviewed by Clarence Otoole MD. rs6 21:41 Patient visited by Cate Glez RN. kas2 21:54 Patient visited by Keily Santoro. nb2 22:08 Discontinued IV bleeding controlled, pressure dressing applied, No redness/swelling at [facility] site. 22:09 Patient visited by Cate Glez RN. kas2 22:10 Patient visited by Clarence Otoole MD. br1 22:22 The patient / caregiver is instructed regarding the plan of care and ED course. kas2 22:23 Patient visited by Cate Glez RN. [facility] Administered Medications: 20:52 Drug: Albuterol-Ipratropium 1 neb [ipratropium-albuterol 0.5 mg-3 mg(2.5 mg base)/3 mL jc3 nebulization soln (1 neb)] Route: Nebulizer; 21:08 Drug: Albuterol-Ipratropium 1 neb [ipratropium-albuterol 0.5 mg-3 mg(2.5 mg base)/3 mL jc3 nebulization soln (1 neb)] Route: Nebulizer; 21:18 Drug: Albuterol-Ipratropium 1 neb [ipratropium-albuterol 0.5 mg-3 mg(2.5 mg base)/3 mL jc3 nebulization soln (1 neb)] Route: Nebulizer; 21:23 Drug: Solu-MEDROL 125 mg [Solu-Medrol 500 mg intravenous solution (125 mg)] Route: IVP; kas2 Site: right antecubital; 22:15 Drug: Ventolin 2 puffs [Ventolin HFA 90 mcg/actuation aerosol inhaler (2 puffs)] Route: kas2 Inhalation; RT: 20:55 Initial Med Neb Given as ordered. Respiratory: Breath sounds are coarse bilaterally. jc3 Breath sounds with crackles bilaterally. Breath sounds with wheezes bilaterally. at expiration at inspiration. 20:55 O2 via nasal cannula \T\ 2L/min. jc3 21:19 Subsequent Med Neb Given as ordered. jc3 21:25 Subsequent Med Neb Given as ordered Patient tolerated procedure well without adverse jc3 effect. Respiratory: Breath sounds are coarse bilaterally. Breath sounds with crackles bilaterally. Breath sounds with rales Breath sounds with wheezes bilaterally. at expiration at inspiration. Order Results: Lab Order: B-Type Natiuretic Peptide; SPEC'M 05/18/16 20:38 Test: BRAIN NATRIURETIC PEPTIDE; Value: < 5.0; Range: <100; Units: PG/ML; Status: F Lab Order: Basic Metabolic Profile; SPEC'M 05/18/16 20:38 Test: GLUCOSE, FASTING; Value: 109; Range: 70-105; Abnormal: Above high normal; Units: MG/DL; Status: F Test: BLOOD UREA NITROGEN; Value: 15; Range: 7-18; Units: MG/DL; Status: F Test: CREATININE FOR GFR; Value: 0.97; Range: 0.70-1.30; Units: MG/DL; Status: F Test: GLOMERULAR FILTRATION RATE; Value: > 60.0; Range: >60; Status: F Test: SODIUM LEVEL; Value: 139; Range: 136-145; Units: MEQ/L; Status: F Test: POTASSIUM SERUM; Value: 3.9; Range: 3.5-5.1; Units: MEQ/L; Status: F Test: CHLORIDE LEVEL; Value: 105; Range: 98-107; Units: MEQ/L; Status: F Test: CARBON DIOXIDE LEVEL; Value: 27; Range: 21-32; Units: MEQ/L; Status: F Test: ANION GAP; Value: 7; Range: 8-16; Abnormal: Below low normal; Units: MEQ/L; Status: F Test: CALCIUM LEVEL; Value: 8.4; Range: 8.5-10.1; Abnormal: Below low normal; Units: MG/DL; Status: F Test Note: ; Units are mL/min/1.73 m2 Chronic Kidney Disease Staging per NKF: Stage I & II GFR >=60 Normal to Mildly Decreased Stage III GFR 30-59 Moderately Decreased Stage IV GFR 15-29 Severely Decreased Stage V GFR <15 Very Little GFR Left ESRD GFR <15 on DEVULCANIZER OPERATOR Lab Order: CBC with Diff; SPEC'M 05/18/16 20:38 Test: WHITE BLOOD COUNT; Value: 12.1; Range: 4.0-10.0; Abnormal: Above high normal; Units: K/mm3; Status: F Test: RED BLOOD COUNT; Value: 4.76; Range: 4.30-6.10; Units: M/mm3; Status: F Test: HEMOGLOBIN; Value: 14.5; Range: 14.0-18.0; Units: g/dl; Status: F Test: HEMATOCRIT; Value: 42.9; Range: 42.0-52.0; Units: %; Status: F Test: MEAN CORPUSCULAR VOLUME; Value: 90.0; Range: 80.0-96.0; Units: fl; Status: F Test: MEAN CORPUSCULAR HEMOGLOBIN; Value: 30.5; Range: 27.0-33.0; Units: pg; Status: F Test: MEAN CORPUSCULAR HGB CONC; Value: 33.9; Range: 32.0-36.5; Units: g/dl; Status: F Test: RED CELL DISTRIBUTION WIDTH; Value: 13.6; Range: 11.5-14.5; Units: %; Status: F Test: PLATELET COUNT, AUTOMATED; Value: 422; Range: 150-450; Units: k/mm3; Status: F Test: NEUTROPHILS %; Value: 45.1; Range: 36.0-66.0; Units: %; Status: F Test: LYMPH %; Value: 35.2; Range: 24.0-44.0; Units: %; Status: F Test: MONO %; Value: 5.5; Range: 0.0-5.0; Abnormal: Above high normal; Units: %; Status: F Test: EOS %; Value: 11.0; Range: 0.0-3.0; Abnormal: Above high normal; Units: %; Status: F Test: BASO %; Value: 0.8; Range: 0.0-1.0; Units: %; Status: F Test: LARGE UNSTAINED CELL %; Value: 2.3; Range: 0.0-4.0; Units: %; Status: F Test: NEUTROPHILS #; Value: 5.5; Range: 1.8-7.7; Units: K/mm3; Status: F Test: LYMPH #; Value: 4.3; Range: 1.5-4.5; Units: K/mm3; Status: F Test: MONO #; Value: 0.7; Range: 0.0-0.8; Units: K/mm3; Status: F Test: EOS #; Value: 1.3; Range: 0.0-0.50; Abnormal: Above high normal; Units: K/mm3; Status: F Test: BASO #; Value: 0.1; Range: 0.0-0.2; Units: K/mm3; Status: F Test: LARGE UNSTAINED CELL #; Value: 0.3; Range: 0.0-0.4; Units: K/mm3; Status: F Lab Order: Cardiac Injury Profile; [facility] 05/18/16 20:38 Test: CPK CREATINE PHOSPHOKINASE; Value: 344; Range: 39-308; Abnormal: Above high normal; Units: U/L; Status: F Test: CK-MB VALUE MASS; Value: 6.0; Range: 0.0-3.6; Abnormal: Above high normal; Units: NG/ML; Status: F Test: MB/CK RELATIVE INDEX; Value: 1.74; Range: < OR =4; Status: F Test Note: ; DIAGNOSIS CRITERIA MMB ng/ml Relative Index (RI) NON-AMI < or = 5 N/A [place] > 5 < or = 4 AMI > 5 > 4 Lab Order: Troponin; SPEC' 05/18/16 20:38 Test: TROPONIN I; Value: 0.02; Range: < 0.10; Units: NG/ML; Status: F Test Note: ; Troponin I Reference Interval for [facility] LOCI: 99th Percentile= 0.00-0.045 ng/ml Risk Stratification: <= 0.10 ng/ml Decreased Risk for Adverse Clinical Events. 0.10-1.50 ng/ml Increased Risk for Adverse Clinical Events. Evaluation of additional criterion and/or repeat testing in 2-6 hours is suggested to rule out myocardial damage. >= 1.50 ng/ml Indicative of Myocardial Injury. Outcome: 22:11 Discharge ordered by Provider. br1 22:22 Discharge Assessment: patient administered narcotics - no. The following High Risk [facility] Discharge criteria are identified: None. Discharged to home ambulatory. Condition: good Condition: stable Condition: improved. No special radiology studies were completed. Property :Personal belongings accompany Pt. 22:23 Patient left the ED. kas2 Signatures: Jacklyn Braxton,RN RN jo3 Clarence Otoole MD MD br1 Awais Pandey jc3 Jacki Bear Shannon RN RN sls1 Ml Martinez, JUAN PABLO SPIRITUAL COUNSELOR rs6 Maribel Hutchinson Kim, RN RN kas2 Keily Santoro2 Corrections: (The following items were deleted from the chart) 20:30 20:28 BP 123 / 84; Pulse 85bpm; Resp 24bpm; Pulse Ox 92% RA; 83.91 kg; Height 5 ft. 9 ajs in.; BMI: 27.3; Pain 0/10; ajs MTDD
--- NOTE | 2016-05-19 00:57 | REP ---
Clinical: Acute shortness of breath . Comparison: 05/08/2016 . Technique: PA and lateral. Findings: The mediastinum and cardiac silhouette are normal. The lung mcqueen are clear and without acute consolidation, effusion, or pneumothorax. The skeletal structures are intact and normal. Impression: 1. No acute cardiopulmonary process. Signed by Oumar Olivas MD 05/19/2016 12:48 A
--- NOTE | 2016-05-19 10:54 | ECGEPIP ---
Stationary ECG Study [facility] - ED Test Date: 2016-05-18 Pat Name: EDEL SILVER Department: Room: - Gender: M Nurse Practitioner Physicians Assistant: sammy : 1970 Requested By: OMER Morrison Order Number: [id number] Reading MD: Joan Jacob Measurements Intervals [place] Rate: 69 P: 65 [place]: 161 QRS: 55 QRSD: 101 T: 36 QT: 368 QTc: 396 Interpretive Statements SINUS RHYTHM NO PRIOR FOR COMPARISON Electronically Signed On 05-19-2016 10:53:54 EST by Joan Jacob
--- NOTE | 2016-05-20 23:24 | EDDOCDS ---
Nurse's Notes [facility] Name: Edel Silver Age: 45 yrs Sex: Male : 1970 Arrival Date: 05/18/2016 Time: 20:17 Bed 9 Private MD: Diagnosis: Chronic obstructive pulmonary disease with (acute) exacerbation Presentation: 05/18 20:28 Presenting complaint: Pt presented to Ed stating that he could not breathe. Not moving jo3 much air in triage. POX 92%. Adult Sepsis Screening: The patient does not have new or worsening altered mentation. Patient has a respiratory rate of greater than or equal to 22 (1 point). Systolic blood pressure is greater than 100. Patient has a qSOFA score of 0- Negative Sepsis Screen. Suicide/Homicide risk assessment- the patient denies having any suicidal and/or homicidal ideations and does not present with any other emotional, behavioral or mental health complaints. Status: Patient is not a business services specialist sales or dependent. Transition of care: patient was not received from another setting of care. 20:28 Acuity: JORDIN Level 3 jo3 20:28 Method Of Arrival: Walkin/Carried/Asstd jo3 20:28 Presenting complaint: Patient states: Patient states breathing has been getting worse kas2 all week. Productive cough. History of COPD. Denies chest pain or shortness of breath. Adult Sepsis Screening: The patient does not have new or worsening altered mentation. Patient's respiratory rate is less than 22. Systolic blood pressure is greater than 100. Patient has a qSOFA score of 0- Negative Sepsis Screen. Suicide/Homicide risk assessment- the patient denies having any suicidal and/or homicidal ideations and does not present with any other emotional, behavioral or mental health complaints. Status: Patient is not a business services specialist sales or dependent. Transition of care: patient was not received from another setting of care. 20:28 Acuity: JORDIN Level 3 kas2 20:28 Method Of Arrival: Walkin/Carried/Asstd kas2 Triage Assessment: 20:31 General: Appears distressed, uncomfortable, well nourished, well groomed, Behavior is kas2 anxious, appropriate for age, cooperative. Pain: Location: chest Pain currently is 10 out of 10 on a pain scale. Pain does not radiate. Pt Declines HIV testing. Neurological: Level of Consciousness is awake, alert, Oriented to person, place, time. Cardiovascular: Capillary refill < 3 seconds Heart tones S1 S2 present Rhythm is sinus rhythm No ectopy. Respiratory: Airway is patent Respiratory effort is labored, with nasal flaring, with retractions, Breath sounds are diminished bilaterally. Breath sounds with wheezes inspiratory expiratory bilaterally. Derm: Skin is intact, Skin is dry, Skin is pink, warm & dry. Skin temperature is warm. 22:22 Respiratory: Onset: The symptoms/episode began/occurred suddenly. [facility] Historical: - Allergies: no known allergies; - Home Meds: 1. albuterol sulfate 90 mcg/actuation Inhl HFAA 2 puffs as needed doesnt have enough $ 2. ipratropium bromide 0.02 % inhalation soln 2.5 mL 3-4 times daily as needed 3. Symbicort 160-4.5 mcg/actuation inhalation HFAA 2 puffs 2 times per day doesnt have enough $ - PMHx: Asthma; COPD; Seasonal Allergies; - PSHx: right leg surgery; Splenectomy; - Social history: No barriers to communication noted, The patient speaks fluent Azeri, Speaks appropriately for age, Smoking status: Patient uses tobacco products, heavy tobacco smoker. - Family history: Not pertinent. - : The pt / caregiver states he / she is not on anticoagulants. The pt / caregiver states he / she is not on anticoagulants. Home medication list is obtained from the patient. - Exposure Risk Screening:: None identified. Screenin:34 Screening information is obtained from the patient. Fall risk: No risks identified. [facility] Assistance ADL's: requires no assistance with activities of daily living. Abuse/DV Screen: The patient / caregiver reports he/she is: not in a situation that causes fear, pain or injury. Nutritional screening: No deficits noted. Advance Directives: Currently, there is no health care proxy. There is no active DNR order. There is no living will. There is no Power of Statistical Consultant. home support is adequate. Assessment: 20:33 General: See triage note.. [facility] 20:47 General: Patient is not wanting to wear his oxygen and is screaming profanities to the [facility] RN. RN told patient he needs to comply with our medical advice and wear his oxygen or he would have to sign out AMA. Patient decided to keep oxygen on. Dr. Otoole aware.. 21:39 General: Patient took himself off the monitor and refusing to go back on. Wanting to [facility] leave. Dr. Otoole aware.. 21:40 General: Appears in no apparent distress, comfortable. Pain: Denies pain. Neurological: [facility] Level of Consciousness is awake, alert, Oriented to person, place, time. Cardiovascular: Rhythm is sinus rhythm No ectopy. Respiratory: Airway is patent Respiratory effort is unlabored, Respiratory pattern is regular, symmetrical, Breath sounds are diminished bilaterally. Breath sounds with wheezes expiratory. Derm: Skin is intact, Skin is dry, Skin is pink, warm & dry. Skin temperature is warm. 22:08 General: Dr. Otoole in to talk with patient at this time.. [email or web address] Vital Signs: 20:28 Pulse Ox 98% on 2 lpm NC; ajs 20:28 BP 123 / 84; Pulse 85; Resp 24; Temp 96.4; Pulse Ox 92% on R/A; Weight 83.91 kg; Height [facility] 5 ft. 9 in. (175.26 cm); Pain 0/10; 20:44 BP 127 / 84 (auto/); kas2 20:44 Pulse 74 MON; Pulse Ox 94% ; kas2 20:55 BP 136 / 74 (auto/); kas2 20:55 Pulse 84 MON; Pulse Ox 94% ; kas2 21:10 BP 124 / 57 (auto/); kas2 21:10 Pulse 72 MON; Pulse Ox 94% ; kas2 21:25 BP 120 / 73 (auto/); kas2 21:25 Pulse 68 MON; Pulse Ox 93% ; kas2 22:22 BP 125 / 72; Pulse 68; Resp 20; Temp 97.6(O); Pulse Ox 95% on R/A; Pain 0/10; kas2 20:28 Body Mass Index 27.32 (83.91 kg, 175.26 cm) [facility] Vitals: 22:22 Log In Time: May 18, 2016 at 20:20. [facility] ED Course: 20:18 Patient visited by Maribel Hutchinson. gjb 20:18 Patient moved to Waiting gjb 20:23 Cate Glez,RN is Primary Nurse. sls1 20:23 Patient moved to 9 sls1 20:29 Triage Initiated jo3 20:30 Patient visited by Jacki Bear. ajs 20:34 Patient visited by Cate Glez RN. kas2 20:46 Inserted saline lock: 20 gauge in right antecubital area and blood collected. The kas2 patient tolerated the procedure well. No procedures done that require assistance. 20:49 Patient visited by Cate Glez RN. kas2 20:57 Clarence Otoole MD is Attending Physician. br1 21:06 Patient visited by Clarence Otoole MD. br1 21:11 B-Type Natiuretic Peptide Sent. kas2 21:11 Cardiac Injury Profile Sent. kas2 21:11 Troponin Sent. kas2 21:16 Patient visited by Ml Martinez PCA. rs6 21:16 EKG done. (by ED staff). Reviewed by Clarence Otoole MD. rs6 21:41 Patient visited by Cate Glez RN. kas2 21:54 Patient visited by Keily Santoro. nb2 22:08 Discontinued IV bleeding controlled, pressure dressing applied, No redness/swelling at [facility] site. 22:09 Patient visited by Cate Glez RN. kas2 22:10 Patient visited by Clarence Otoole MD. br1 22:22 The patient / caregiver is instructed regarding the plan of care and ED course. kas2 22:23 Patient visited by Cate Glez RN. kas2 22:30 [facility] Payment Agreement was scanned into [employer] and attached to record. zo 05/19 01:07 Chest, 2 View (pa\E\lat) Returned. EDMS 11:12 EKG-ADULT Returned. EDMS 13:40 T-Sheet-- Draft Copy was scanned into [employer] and attached to record. gb 13:40 ECG/EKG was scanned into [employer] and attached to record. gb 13:40 Trend VS was scanned into [employer] and attached to record. gb Administered Medications: 05/18 20:52 Drug: Albuterol-Ipratropium 1 neb [ipratropium-albuterol 0.5 mg-3 mg(2.5 mg base)/3 mL jc3 nebulization soln (1 neb)] Route: Nebulizer; 21:08 Drug: Albuterol-Ipratropium 1 neb [ipratropium-albuterol 0.5 mg-3 mg(2.5 mg base)/3 mL jc3 nebulization soln (1 neb)] Route: Nebulizer; 21:18 Drug: Albuterol-Ipratropium 1 neb [ipratropium-albuterol 0.5 mg-3 mg(2.5 mg base)/3 mL jc3 nebulization soln (1 neb)] Route: Nebulizer; 21:23 Drug: Solu-MEDROL 125 mg [Solu-Medrol 500 mg intravenous solution (125 mg)] Route: IVP; [facility] Site: right antecubital; 22:15 Drug: Ventolin 2 puffs [Ventolin HFA 90 mcg/actuation aerosol inhaler (2 puffs)] Route: [facility] Inhalation; Attachments: 13:40 Trend VS gb RT: 05/18 20:55 Initial Med Neb Given as ordered. Respiratory: Breath sounds are coarse bilaterally. jc3 Breath sounds with crackles bilaterally. Breath sounds with wheezes bilaterally. at expiration at inspiration. 20:55 O2 via nasal cannula \T\ 2L/min. jc3 21:19 Subsequent Med Neb Given as ordered. jc3 21:25 Subsequent Med Neb Given as ordered Patient tolerated procedure well without adverse jc3 effect. Respiratory: Breath sounds are coarse bilaterally. Breath sounds with crackles bilaterally. Breath sounds with rales Breath sounds with wheezes bilaterally. at expiration at inspiration. Order Results: Lab Order: B-Type Natiuretic Peptide; SPEC'M 05/18/16 20:38 Test: BRAIN NATRIURETIC PEPTIDE; Value: < 5.0; Range: <100; Units: PG/ML; Status: F Lab Order: Basic Metabolic Profile; SPEC'M 05/18/16 20:38 Test: GLUCOSE, FASTING; Value: 109; Range: 70-105; Abnormal: Above high normal; Units: MG/DL; Status: F Test: BLOOD UREA NITROGEN; Value: 15; Range: 7-18; Units: MG/DL; Status: F Test: CREATININE FOR GFR; Value: 0.97; Range: 0.70-1.30; Units: MG/DL; Status: F Test: GLOMERULAR FILTRATION RATE; Value: > 60.0; Range: >60; Status: F Test: SODIUM LEVEL; Value: 139; Range: 136-145; Units: MEQ/L; Status: F Test: POTASSIUM SERUM; Value: 3.9; Range: 3.5-5.1; Units: MEQ/L; Status: F Test: CHLORIDE LEVEL; Value: 105; Range: 98-107; Units: MEQ/L; Status: F Test: CARBON DIOXIDE LEVEL; Value: 27; Range: 21-32; Units: MEQ/L; Status: F Test: ANION GAP; Value: 7; Range: 8-16; Abnormal: Below low normal; Units: MEQ/L; Status: F Test: CALCIUM LEVEL; Value: 8.4; Range: 8.5-10.1; Abnormal: Below low normal; Units: MG/DL; Status: F Test Note: ; Units are mL/min/1.73 m2 Chronic Kidney Disease Staging per NKF: Stage I & II GFR >=60 Normal to Mildly Decreased Stage III GFR 30-59 Moderately Decreased Stage IV GFR 15-29 Severely Decreased Stage V GFR <15 Very Little GFR Left ESRD GFR <15 on SOCIAL MEDIA SENIOR ASSOCIATE Lab Order: CBC with Diff; SPEC'M 05/18/16 20:38 Test: WHITE BLOOD COUNT; Value: 12.1; Range: 4.0-10.0; Abnormal: Above high normal; Units: K/mm3; Status: F Test: RED BLOOD COUNT; Value: 4.76; Range: 4.30-6.10; Units: M/mm3; Status: F Test: HEMOGLOBIN; Value: 14.5; Range: 14.0-18.0; Units: g/dl; Status: F Test: HEMATOCRIT; Value: 42.9; Range: 42.0-52.0; Units: %; Status: F Test: MEAN CORPUSCULAR VOLUME; Value: 90.0; Range: 80.0-96.0; Units: fl; Status: F Test: MEAN CORPUSCULAR HEMOGLOBIN; Value: 30.5; Range: 27.0-33.0; Units: pg; Status: F Test: MEAN CORPUSCULAR HGB CONC; Value: 33.9; Range: 32.0-36.5; Units: g/dl; Status: F Test: RED CELL DISTRIBUTION WIDTH; Value: 13.6; Range: 11.5-14.5; Units: %; Status: F Test: PLATELET COUNT, AUTOMATED; Value: 422; Range: 150-450; Units: k/mm3; Status: F Test: NEUTROPHILS %; Value: 45.1; Range: 36.0-66.0; Units: %; Status: F Test: LYMPH %; Value: 35.2; Range: 24.0-44.0; Units: %; Status: F Test: MONO %; Value: 5.5; Range: 0.0-5.0; Abnormal: Above high normal; Units: %; Status: F Test: EOS %; Value: 11.0; Range: 0.0-3.0; Abnormal: Above high normal; Units: %; Status: F Test: BASO %; Value: 0.8; Range: 0.0-1.0; Units: %; Status: F Test: LARGE UNSTAINED CELL %; Value: 2.3; Range: 0.0-4.0; Units: %; Status: F Test: NEUTROPHILS #; Value: 5.5; Range: 1.8-7.7; Units: K/mm3; Status: F Test: LYMPH #; Value: 4.3; Range: 1.5-4.5; Units: K/mm3; Status: F Test: MONO #; Value: 0.7; Range: 0.0-0.8; Units: K/mm3; Status: F Test: EOS #; Value: 1.3; Range: 0.0-0.50; Abnormal: Above high normal; Units: K/mm3; Status: F Test: BASO #; Value: 0.1; Range: 0.0-0.2; Units: K/mm3; Status: F Test: LARGE UNSTAINED CELL #; Value: 0.3; Range: 0.0-0.4; Units: K/mm3; Status: F Lab Order: Cardiac Injury Profile; SPEC'M 05/18/16 20:38 Test: CPK CREATINE PHOSPHOKINASE; Value: 344; Range: 39-308; Abnormal: Above high normal; Units: U/L; Status: F Test: CK-MB VALUE MASS; Value: 6.0; Range: 0.0-3.6; Abnormal: Above high normal; Units: NG/ML; Status: F Test: MB/CK RELATIVE INDEX; Value: 1.74; Range: < OR =4; Status: F Test Note: ; DIAGNOSIS CRITERIA MMB ng/ml Relative Index (RI) NON-AMI < or = 5 N/A BADILLO ZONE > 5 < or = 4 AMI > 5 > 4 Lab Order: Troponin; TEENA 05/18/16 20:38 Test: TROPONIN I; Value: 0.02; Range: < 0.10; Units: NG/ML; Status: F Test Note: ; Troponin I Reference Interval for Siemens MergeLocal LOCI: 99th Percentile= 0.00-0.045 ng/ml Risk Stratification: <= 0.10 ng/ml Decreased Risk for Adverse Clinical Events. 0.10-1.50 ng/ml Increased Risk for Adverse Clinical Events. Evaluation of additional criterion and/or repeat testing in 2-6 hours is suggested to rule out myocardial damage. >= 1.50 ng/ml Indicative of Myocardial Injury. Radiology Order: Chest, 2 View (pa\E\lat) Test: Chest, 2 View (pa\E\lat) REASON FOR EXAMINATION: Shortness of Breath; Clinical: Acute shortness of breath .; ; Comparison: 05/08/2016 .; ; Technique: PA and lateral.; ; Findings:; The mediastinum and cardiac silhouette are normal. The lung mcqueen are clear and; without acute consolidation, effusion, or pneumothorax. The skeletal structures; are intact and normal.; ; Impression:; 1. No acute cardiopulmonary process.; ; ; Signed by; Oumar Olivas MD 05/19/2016 12:48 A; Radiology Order: EKG-ADULT Test: EKG-ADULT REASON FOR EXAMINATION: Shortness of Breath; Stationary ECG Study; [facility] - ED; ; Test Date: 2016-05-18; Pat Name: EDEL SILVER Department:; Room: -; Gender: M Behavioral Intervention Specialist: rs; : 1970 Requested By: CLARENCE Morrison; Order Number: [id number] Reading MD: Joan Jacob; Measurements; Intervals [place]; Rate: 69 P: 65; UT: 161 QRS: 55; QRSD: 101 T: 36; QT: 368; QTc: 396; Interpretive Statements; SINUS RHYTHM; NO PRIOR FOR COMPARISON; Electronically Signed On 05-19-2016 10:53:54 EST by Joan Jacob; Outcome: 22:11 Discharge ordered by Provider. br1 22:22 Discharge Assessment: patient administered narcotics - no. The following High Risk [facility] Discharge criteria are identified: None. Discharged to home ambulatory. Condition: good Condition: stable Condition: improved. No special radiology studies were completed. Property :Personal belongings accompany Pt. 22:23 Patient left the ED. [facility] Signatures: Dispatcher [employer] EDMS Tanya Grayson, Reg Reg Jacklyn Patel,RN RN jo3 Ovidio Flores Brian, MD MD br1 Awais Pandey jc3 Jacki Bear Shannon RN RN sls1 Ml Martinez, JUAN PABLO WELDING MACHINE OPERATOR GAS rs6 Maribel Hutchinson Kim, RN RN kas2 Keily Santoro2 Corrections: (The following items were deleted from the chart) 20:30 20:28 BP 123 / 84; Pulse 85bpm; Resp 24bpm; Pulse Ox 92% RA; 83.91 kg; Height 5 ft. 9 ajs in.; BMI: 27.3; Pain 0/10; ajs Chart Complete MTDD
--- NOTE | 2016-05-20 23:24 | EDDOCDS ---
Physician Documentation [facility] Name: Aleksey Osullivan Age: 45 yrs Sex: Male : 1970 Arrival Date: 05/18/2016 Time: 20:17 Bed 9 Private MD: Disposition: 05/18/16 22:11 Discharged to Home/Self Care. Impression: Chronic obstructive pulmonary disease with (acute) exacerbation. - Condition is Stable. - Discharge Instructions: Chronic Obstructive Pulmonary Disease. - Prescriptions for Albuterol Sulfate 2.5 mg /3 mL (0.083 %) Inhalation Solution for Nebulization - inhale 1 unit by NEBULIZATION route 4 times per day As needed; 1 box. Prednisone 20 mg Oral Tablet - take 2 tablets by ORAL route once daily for 4 days; 8 tablet. - Medication Reconciliation, Local Pharmacy Hours form. - Follow up: Private Physician; When: 1 week; Reason: Recheck today's complaints. - Problem is an acute exacerbation. - Symptoms have improved. - Notes: You were seen in the ED for shortness of breath and wheezing concerning for an exacerbation of your COPD. Bloodwork, chest XRay and EKG of the heart showed no other acute findings. You were treated and improved with breathing treatment and steroids. As you are feeling better you may return home to follow up with your doctor when you return to the [facility] in 1 week - please call in the morning to arrange to be seen. You may continue your nebulizers as needed and may take the Prednisone as directed. Return to the ED for any return of trouble breathing, chest pain, fever, or any other concerns. Historical: - Allergies: no known allergies; - Home Meds: 1. albuterol sulfate 90 mcg/actuation Inhl HFAA 2 puffs as needed doesnt have enough $ 2. ipratropium bromide 0.02 % inhalation soln 2.5 mL 3-4 times daily as needed 3. Symbicort 160-4.5 mcg/actuation inhalation HFAA 2 puffs 2 times per day doesnt have enough $ - PMHx: Asthma; COPD; Seasonal Allergies; - PSHx: right leg surgery; Splenectomy; - Social history: No barriers to communication noted, The patient speaks fluent East Timorese, Speaks appropriately for age, Smoking status: Patient uses tobacco products, heavy tobacco smoker. - Family history: Not pertinent. - : The pt / caregiver states he / she is not on anticoagulants. The pt / caregiver states he / she is not on anticoagulants. Home medication list is obtained from the patient. - Exposure Risk Screening:: None identified. Vital Signs: 05/18 20:28 Pulse Ox 98% on 2 lpm NC; ajs 20:28 BP 123 / 84; Pulse 85; Resp 24; Temp 96.4; Pulse Ox 92% on R/A; Weight 83.91 kg / ajs 184.99 lbs; Height 5 ft. 9 in. (175.26 cm); Pain 0/10; 20:44 BP 127 / 84 (auto/); kas2 20:44 Pulse 74 MON; Pulse Ox 94% ; kas2 20:55 BP 136 / 74 (auto/); kas2 20:55 Pulse 84 MON; Pulse Ox 94% ; kas2 21:10 BP 124 / 57 (auto/); kas2 21:10 Pulse 72 MON; Pulse Ox 94% ; kas2 21:25 BP 120 / 73 (auto/); kas2 21:25 Pulse 68 MON; Pulse Ox 93% ; kas2 22:22 BP 125 / 72; Pulse 68; Resp 20; Temp 97.6(O); Pulse Ox 95% on R/A; Pain 0/10; kas2 20:28 Body Mass Index 27.32 (83.91 kg, 175.26 cm) aj MDM: 21:07 Associate Java Developer/Pulse Ox/q 30 min VS ordered. br1 21:07 IV Saline Lock ordered. br1 21:07 Rhythm Strip to chart ordered. br1 21:07 Undress patient appropriately for examination ordered. br1 21:07 Albuterol-Ipratropium 1 neb Nebulizer every 20 minutes x3 ordered. br1 21:07 Solu-MEDROL 125 mg IVP once ordered. br1 21:07 Call Respiratory ordered. br1 21:08 Call Respiratory complete. mdr 21:08 Chest, 2 View (pa\E\lat) Ordered. EDMS 21:08 B-Type Natiuretic Peptide Ordered. EDMS 21:08 Basic Metabolic Profile Ordered. EDMS 21:08 CBC with Diff Ordered. EDMS 21:08 Cardiac Injury Profile Ordered. EDMS 21:08 Troponin Ordered. EDMS 21:08 ECG WITH READING ER PHYS+CARDIAG ordered. EDMS 21:31 Basic Metabolic Profile Reviewed. br1 21:31 CBC with Diff Reviewed. br1 21:31 Cardiac Injury Profile Reviewed. br1 21:31 Troponin Reviewed. br1 21:46 B-Type Natiuretic Peptide Reviewed. br1 21:47 Ambulate Patient [facility] Pulse Oximetry ordered. br1 22:07 Ventolin Inhaler 2 puffs Inhalation once ordered. br1 22:09 Financial registration complete. zo 22:30 [facility] Payment Agreement was scanned into [employer] and attached to record. zo 05/19 13:40 T-Sheet-- Draft Copy was scanned into [email or web address] and attached to record. gb 13:40 ECG/EKG was scanned into [employer] and attached to record. gb 13:40 Trend VS was scanned into [email or web address] and attached to record. gb Administered Medications: 05/18 20:52 Drug: Albuterol-Ipratropium 1 neb [ipratropium-albuterol 0.5 mg-3 mg(2.5 mg base)/3 mL jc3 nebulization soln (1 neb)] Route: Nebulizer; 21:08 Drug: Albuterol-Ipratropium 1 neb [ipratropium-albuterol 0.5 mg-3 mg(2.5 mg base)/3 mL jc3 nebulization soln (1 neb)] Route: Nebulizer; 21:18 Drug: Albuterol-Ipratropium 1 neb [ipratropium-albuterol 0.5 mg-3 mg(2.5 mg base)/3 mL jc3 nebulization soln (1 neb)] Route: Nebulizer; 21:23 Drug: Solu-MEDROL 125 mg [Solu-Medrol 500 mg intravenous solution (125 mg)] Route: IVP; kas2 Site: right antecubital; 22:15 Drug: Ventolin 2 puffs [Ventolin HFA 90 mcg/actuation aerosol inhaler (2 puffs)] Route: kas2 Inhalation; Signatures: Dispatcher [employer] EDMS Tanya Grayson, Reg Reg gb Jacklyn Braxton RN RN susy3 Ovidio Flores Brian, MD MD br1 Carlee Wilde RN RN sls1 Asim Ayala, JUAN PABLO DENTAL HYGIENE INSTRUCTOR Cate Zhu RN RN kas2 Awais Pandey jc3 The chart was reviewed and I authenticate all verbal orders and agree with the evaluation and treatment provided.Attachments: 22:30 [facility] Payment Agreement zo 05/19 13:40 T-Sheet-- Draft Copy gb 13:40 ECG/EKG gb Chart Complete MTDD
--- NOTE | 2016-05-20 23:24 | EDDOCDS ---
Physician Documentation [facility] Name: Aleksey Osullivan Age: 45 yrs Sex: Male : 1970 Arrival Date: 05/18/2016 Time: 20:17 Bed 9 Private MD: Disposition: 05/18/16 22:11 Discharged to Home/Self Care. Impression: Chronic obstructive pulmonary disease with (acute) exacerbation. - Condition is Stable. - Discharge Instructions: Chronic Obstructive Pulmonary Disease. - Prescriptions for Albuterol Sulfate 2.5 mg /3 mL (0.083 %) Inhalation Solution for Nebulization - inhale 1 unit by NEBULIZATION route 4 times per day As needed; 1 box. Prednisone 20 mg Oral Tablet - take 2 tablets by ORAL route once daily for 4 days; 8 tablet. - Medication Reconciliation, Local Pharmacy Hours form. - Follow up: Private Physician; When: 1 week; Reason: Recheck today's complaints. - Problem is an acute exacerbation. - Symptoms have improved. - Notes: You were seen in the ED for shortness of breath and wheezing concerning for an exacerbation of your COPD. Bloodwork, chest XRay and EKG of the heart showed no other acute findings. You were treated and improved with breathing treatment and steroids. As you are feeling better you may return home to follow up with your doctor when you return to the [facility] in 1 week - please call in the morning to arrange to be seen. You may continue your nebulizers as needed and may take the Prednisone as directed. Return to the ED for any return of trouble breathing, chest pain, fever, or any other concerns. Historical: - Allergies: no known allergies; - Home Meds: 1. albuterol sulfate 90 mcg/actuation Inhl HFAA 2 puffs as needed doesnt have enough $ 2. ipratropium bromide 0.02 % inhalation soln 2.5 mL 3-4 times daily as needed 3. Symbicort 160-4.5 mcg/actuation inhalation HFAA 2 puffs 2 times per day doesnt have enough $ - PMHx: Asthma; COPD; Seasonal Allergies; - PSHx: right leg surgery; Splenectomy; - Social history: No barriers to communication noted, The patient speaks fluent Italian, Speaks appropriately for age, Smoking status: Patient uses tobacco products, heavy tobacco smoker. - Family history: Not pertinent. - : The pt / caregiver states he / she is not on anticoagulants. The pt / caregiver states he / she is not on anticoagulants. Home medication list is obtained from the patient. - Exposure Risk Screening:: None identified. Vital Signs: 05/18 20:28 Pulse Ox 98% on 2 lpm NC; ajs 20:28 BP 123 / 84; Pulse 85; Resp 24; Temp 96.4; Pulse Ox 92% on R/A; Weight 83.91 kg / ajs 184.99 lbs; Height 5 ft. 9 in. (175.26 cm); Pain 0/10; 20:44 BP 127 / 84 (auto/); kas2 20:44 Pulse 74 MON; Pulse Ox 94% ; kas2 20:55 BP 136 / 74 (auto/); kas2 20:55 Pulse 84 MON; Pulse Ox 94% ; kas2 21:10 BP 124 / 57 (auto/); kas2 21:10 Pulse 72 MON; Pulse Ox 94% ; kas2 21:25 BP 120 / 73 (auto/); kas2 21:25 Pulse 68 MON; Pulse Ox 93% ; kas2 22:22 BP 125 / 72; Pulse 68; Resp 20; Temp 97.6(O); Pulse Ox 95% on R/A; Pain 0/10; kas2 20:28 Body Mass Index 27.32 (83.91 kg, 175.26 cm) aj MDM: 21:07 Thread Checker/Pulse Ox/q 30 min VS ordered. br1 21:07 IV Saline Lock ordered. br1 21:07 Rhythm Strip to chart ordered. br1 21:07 Undress patient appropriately for examination ordered. br1 21:07 Albuterol-Ipratropium 1 neb Nebulizer every 20 minutes x3 ordered. br1 21:07 Solu-MEDROL 125 mg IVP once ordered. br1 21:07 Call Respiratory ordered. br1 21:08 Call Respiratory complete. mdr 21:08 Chest, 2 View (pa\E\lat) Ordered. EDMS 21:08 B-Type Natiuretic Peptide Ordered. EDMS 21:08 Basic Metabolic Profile Ordered. EDMS 21:08 CBC with Diff Ordered. EDMS 21:08 Cardiac Injury Profile Ordered. EDMS 21:08 Troponin Ordered. EDMS 21:08 ECG WITH READING ER PHYS+CARDIAG ordered. EDMS 21:31 Basic Metabolic Profile Reviewed. br1 21:31 CBC with Diff Reviewed. br1 21:31 Cardiac Injury Profile Reviewed. br1 21:31 Troponin Reviewed. br1 21:46 B-Type Natiuretic Peptide Reviewed. br1 21:47 Ambulate Patient [facility] Pulse Oximetry ordered. br1 22:07 Ventolin Inhaler 2 puffs Inhalation once ordered. br1 22:09 Financial registration complete. zo 22:30 [facility] Payment Agreement was scanned into [employer] and attached to record. zo 05/19 13:40 T-Sheet-- Draft Copy was scanned into [employer] and attached to record. gb 13:40 ECG/EKG was scanned into [employer] and attached to record. gb 13:40 Trend VS was scanned into [employer] and attached to record. gb Administered Medications: 05/18 20:52 Drug: Albuterol-Ipratropium 1 neb [ipratropium-albuterol 0.5 mg-3 mg(2.5 mg base)/3 mL jc3 nebulization soln (1 neb)] Route: Nebulizer; 21:08 Drug: Albuterol-Ipratropium 1 neb [ipratropium-albuterol 0.5 mg-3 mg(2.5 mg base)/3 mL jc3 nebulization soln (1 neb)] Route: Nebulizer; 21:18 Drug: Albuterol-Ipratropium 1 neb [ipratropium-albuterol 0.5 mg-3 mg(2.5 mg base)/3 mL jc3 nebulization soln (1 neb)] Route: Nebulizer; 21:23 Drug: Solu-MEDROL 125 mg [Solu-Medrol 500 mg intravenous solution (125 mg)] Route: IVP; kas2 Site: right antecubital; 22:15 Drug: Ventolin 2 puffs [Ventolin HFA 90 mcg/actuation aerosol inhaler (2 puffs)] Route: kas2 Inhalation; Signatures: Dispatcher [employer] EDMS Tanya Grayson, Reg Reg gb Jacklyn Braxton RN RN susy3 Ovidio Flores Brian, MD MD br1 Carlee Wilde RN RN sls1 Asim Ayala, JUAN [employer]AB[employer] GIN YARD SUPERVISOR Cate Zhu RN RN kas2 Awais Pandey jc3 The chart was reviewed and I authenticate all verbal orders and agree with the evaluation and treatment provided.Attachments: 22:30 [facility] Payment Agreement zo 05/19 13:40 T-Sheet-- Draft Copy gb 13:40 ECG/EKG gb Chart Complete MTDD
== END 2016-05-18 22:23 | disposition home or self-care (01) ==
LOC: M ED 20:17
DX: J44.1 Chronic obstructive pulmonary disease with (acute) exacerbation (principal); J45.909 Unspecified asthma, uncomplicated; F17.200 Nicotine dependence, unspecified, uncomplicated
CPT/HCPCS: 36415; 71020; 80048; 82550; 82553; 83880; 85025; 93005; 93041; 94640; 96374; 99285; J2930

== ENCOUNTER 2016-05-28 16:19 | Emergency (ER) | payer SELFPAY ==
[2016-05-28] MEDS ORDERED: ALBUTEROL 90 MCG/ACT 8GM HFA INHALER As Ordered ONE (16:41)
--- NOTE | 2016-05-28 16:56 | EDDOCDS ---
Nurse's Notes [facility] Name: Aleksey Osullivan Age: 45 yrs Sex: Male : 1970 Arrival Date: 05/28/2016 Time: 16:19 Bed TR7 Private MD: Diagnosis: Chronic obstructive pulmonary disease with (acute) exacerbation Presentation: 05/28 16:23 Presenting complaint: Patient states: Breathing difficulty for 4 days. symptoms not rs3 improved with neb treatment. h/o COPD. Adult Sepsis Screening: The patient does not have new or worsening altered mentation. Patient's respiratory rate is less than 22. Systolic blood pressure is greater than 100. Patient has a qSOFA score of 0- Negative Sepsis Screen. Suicide/Homicide risk assessment- the patient denies having any suicidal and/or homicidal ideations and does not present with any other emotional, behavioral or mental health complaints. Status: Patient is not a social services manager or dependent. Transition of care: patient was not received from another setting of care. 16:23 Method Of Arrival: Walkin/Carried/Asstd rs3 16:23 Acuity: JORDIN Level 3 rs3 Triage Assessment: 16:27 General: Appears in no apparent distress. Pain: Location: chest. HIV screening NA for rs3 this visit Offered previously. Respiratory: Onset: The symptoms/episode began/occurred gradually. Historical: - Allergies: no known allergies; - Home Meds: 1. albuterol sulfate 90 mcg/actuation Inhl HFAA 2 puffs as needed doesnt have enough $ 2. ipratropium bromide 0.02 % inhalation soln 2.5 mL 3-4 times daily as needed 3. Symbicort 160-4.5 mcg/actuation inhalation HFAA 2 puffs 2 times per day doesnt have enough $ 4. albuterol sulfate 0.63 mg/3 mL Nebulizer nebu 0.5 ml daily - PMHx: Asthma; COPD; Seasonal Allergies; - PSHx: right leg surgery; Splenectomy; - Social history: Smoking status: Patient uses tobacco products, heavy tobacco smoker. No barriers to communication noted, The patient speaks fluent [place]. - Family history: Not pertinent. - : The pt / caregiver states he / she is not on anticoagulants. Home medication list is obtained from the patient. - Exposure Risk Screening:: None identified. Screenin:52 Screening information is obtained from the patient. Fall risk: No risks identified. pml Assistance ADL's: requires no assistance with activities of daily living. Abuse/DV Screen: The patient / caregiver reports he/she is: not in a situation that causes fear, pain or injury. Nutritional screening: No deficits noted. Advance Directives: Currently, there is no health care proxy. home support is adequate. Assessment: 16:52 General: Appears in no apparent distress, Behavior is appropriate for age, cooperative. pml General: rude and argumentative with this physician underwriter - requesting neb devices - states his nebulizer was never prescribed to him, is his fathers, denies having a primary care - states he is just here for work, denies need for primary care in this area, requesting to speak with PA again. PA [place] aware. Pain: Denies pain. Neurological: Level of Consciousness is awake, alert, Oriented to person, place, time. Cardiovascular: Capillary refill < 3 seconds. Respiratory: Airway is patent Respiratory effort is even, unlabored, Breath sounds are clear bilaterally. Derm: Skin is pink, warm & dry. Vital Signs: 16:21 BP 147 / 89 RA Sitting (auto/reg); Pulse 82; Resp 18; Temp 97.0(O); Pulse Ox 96% on bnb R/A; Weight 83.91 kg; Height 5 ft. 9 in. (175.26 cm); Pain 10/10; 16:21 Body Mass Index 27.32 (83.91 kg, 175.26 cm) [facility] Vitals: 16:21 Log In Time: May 28, 2016 at 16:20. [facility] ED Course: 16:20 Patient visited by Jessica Alonso PCA. bnb 16:20 Patient moved to Waiting bnb 16:22 Patient visited by Jessica Alonso PCA. bnb 16:22 Patient moved to Pre RCE bnb 16:25 Triage Initiated rs3 16:28 Patient moved to Triage 2 rs3 16:29 Migue Fuentes PA is PHCP. mo1 16:29 Nella Grullon MD is Attending Physician. mo1 16:33 Patient visited by Migue Fuentes PA. mo1 16:51 Patient moved to TR7 ar3 16:52 The patient / caregiver is instructed regarding the plan of care and ED course. Patient pml has correct armband on for positive identification. Bed in low position. Call light in reach. 16:52 No IV's were initiated during this patient's visit. No procedures done that require pml assistance. Administered Medications: 16:50 Drug: Ventolin 2 puffs [Ventolin HFA 90 mcg/actuation aerosol inhaler (2 puffs)] Route: pml Inhalation; Order Results: There are currently no results for this order. Outcome: 16:40 Discharge ordered by Provider. mo1 16:52 Discharge Assessment: Patient awake, alert and oriented x 3. No cognitive and/or pml functional deficits noted. Patient verbalized understanding of disposition instructions. patient administered narcotics - no. The following High Risk Discharge criteria are identified: None. Discharged to home ambulatory. Condition: good Condition: stable. Discharge instructions given to patient, Instructed on discharge instructions, follow up and referral plans. medication usage, Demonstrated understanding of instructions, medications, Pt was receptive of discharge instructions/ teaching. Prescriptions given X 4. No special radiology studies were completed. Property sent home with patient. 16:55 Patient left the ED. pml Signatures: Clara FlanneryRN RN rs3 Yuki Winston, UMBRELLA SUPERVISOR UMBRELLA SUPERVISOR ar3 Cynthia Tirado RN RN pml Migue Fuentes PA PA mo1 Jessica Alonso, UMBRELLA SUPERVISOR UMBRELLA SUPERVISOR bnb Corrections: (The following items were deleted from the chart) 16:28 16:23 Acuity: JORDIN Level 4 rs3 rs3 MTDD
--- NOTE | 2016-05-28 16:56 | EDDOCDS ---
Physician Documentation [facility] Name: Aleksey Osullivan Age: 45 yrs Sex: Male : 1970 Arrival Date: 05/28/2016 Time: 16:19 Bed TR7 Private MD: Disposition: 05/28/16 16:40 Discharged to Home/Self Care. Impression: Chronic obstructive pulmonary disease with (acute) exacerbation. - Condition is Stable. - Discharge Instructions: Chronic Obstructive Pulmonary Disease. - Prescriptions for Symbicort 80- 4.5 mcg/actuation Inhalation HFA aerosol inhaler - inhale 2 puff by INHALATION route 2 times per day; 1 Inhaler. ipratropium bromide 0.02 % Inhalation solution - inhale 1.25 milliliter by INHALATION route 3 times per day; 1 box. Albuterol Sulfate 2.5 mg /3 mL (0.083 %) Inhalation Solution for Nebulization - inhale 1 unit by NEBULIZATION route 4 times per day As needed; 1 box. Prednisone 20 mg Oral Tablet - take 2 tablet by ORAL route once daily for 5 days; 10 tablet. Albuterol Sulfate 90 mcg/actuation Inhalation HFA Aerosol Inhaler - inhale 2 puff by INHALATION route every 4 hours As needed; 1 Inhaler. - Medication Reconciliation, Local Pharmacy Hours form. - Follow up: Private Physician; When: Call to arrange an appointment; Reason: Recheck today's complaints, Continuance of care. - Problem is an acute exacerbation. - Symptoms are unchanged. Historical: - Allergies: no known allergies; - Home Meds: 1. albuterol sulfate 90 mcg/actuation Inhl HFAA 2 puffs as needed doesnt have enough $ 2. ipratropium bromide 0.02 % inhalation soln 2.5 mL 3-4 times daily as needed 3. Symbicort 160-4.5 mcg/actuation inhalation HFAA 2 puffs 2 times per day doesnt have enough $ 4. albuterol sulfate 0.63 mg/3 mL Nebulizer nebu 0.5 ml daily - PMHx: Asthma; COPD; Seasonal Allergies; - PSHx: right leg surgery; Splenectomy; - Social history: Smoking status: Patient uses tobacco products, heavy tobacco smoker. No barriers to communication noted, The patient speaks fluent Yi. - Family history: Not pertinent. - : The pt / caregiver states he / she is not on anticoagulants. Home medication list is obtained from the patient. - Exposure Risk Screening:: None identified. Vital Signs: 05/28 16:21 BP 147 / 89 RA Sitting (auto/reg); Pulse 82; Resp 18; Temp 97.0(O); Pulse Ox 96% on bnb R/A; Weight 83.91 kg / 184.99 lbs; Height 5 ft. 9 in. (175.26 cm); Pain 10/10; 16:21 Body Mass Index 27.32 (83.91 kg, 175.26 cm) bnb MDM: 16:38 Ventolin Inhaler 2 puffs Inhalation once ordered. mo1 Administered Medications: 16:50 Drug: Ventolin 2 puffs [Ventolin HFA 90 mcg/actuation aerosol inhaler (2 puffs)] Route: pml Inhalation; Signatures: Clara Flannery RN RN rs3 Cynthia Tirado RN RN pml Migue Fuentes PA PA mo1 MTDD
--- NOTE | 2016-05-30 17:56 | EDDOCDS ---
Physician Documentation [facility] Name: Aleksey Osullivan Age: 45 yrs Sex: Male : 1970 Arrival Date: 05/28/2016 Time: 16:19 Bed TR7 Private MD: Disposition: 05/28/16 16:40 Discharged to Home/Self Care. Impression: Chronic obstructive pulmonary disease with (acute) exacerbation. - Condition is Stable. - Discharge Instructions: Chronic Obstructive Pulmonary Disease. - Prescriptions for Symbicort 80- 4.5 mcg/actuation Inhalation HFA aerosol inhaler - inhale 2 puff by INHALATION route 2 times per day; 1 Inhaler. ipratropium bromide 0.02 % Inhalation solution - inhale 1.25 milliliter by INHALATION route 3 times per day; 1 box. Albuterol Sulfate 2.5 mg /3 mL (0.083 %) Inhalation Solution for Nebulization - inhale 1 unit by NEBULIZATION route 4 times per day As needed; 1 box. Prednisone 20 mg Oral Tablet - take 2 tablet by ORAL route once daily for 5 days; 10 tablet. Albuterol Sulfate 90 mcg/actuation Inhalation HFA Aerosol Inhaler - inhale 2 puff by INHALATION route every 4 hours As needed; 1 Inhaler. - Medication Reconciliation, Local Pharmacy Hours form. - Follow up: Private Physician; When: Call to arrange an appointment; Reason: Recheck today's complaints, Continuance of care. - Problem is an acute exacerbation. - Symptoms are unchanged. Historical: - Allergies: no known allergies; - Home Meds: 1. albuterol sulfate 90 mcg/actuation Inhl HFAA 2 puffs as needed doesnt have enough $ 2. ipratropium bromide 0.02 % inhalation soln 2.5 mL 3-4 times daily as needed 3. Symbicort 160-4.5 mcg/actuation inhalation HFAA 2 puffs 2 times per day doesnt have enough $ 4. albuterol sulfate 0.63 mg/3 mL Nebulizer nebu 0.5 ml daily - PMHx: Asthma; COPD; Seasonal Allergies; - PSHx: right leg surgery; Splenectomy; - Social history: Smoking status: Patient uses tobacco products, heavy tobacco smoker. No barriers to communication noted, The patient speaks fluent German. - Family history: Not pertinent. - : The pt / caregiver states he / she is not on anticoagulants. Home medication list is obtained from the patient. - Exposure Risk Screening:: None identified. Vital Signs: 05/28 16:21 BP 147 / 89 RA Sitting (auto/reg); Pulse 82; Resp 18; Temp 97.0(O); Pulse Ox 96% on bnb R/A; Weight 83.91 kg / 184.99 lbs; Height 5 ft. 9 in. (175.26 cm); Pain 10/10; 16:21 Body Mass Index 27.32 (83.91 kg, 175.26 cm) bnb MDM: 16:38 Ventolin Inhaler 2 puffs Inhalation once ordered. mo1 05/29 14:12 T-Sheet-- Draft Copy was scanned into [employer] and attached to record. gb Administered Medications: 05/28 16:50 Drug: Ventolin 2 puffs [Ventolin HFA 90 mcg/actuation aerosol inhaler (2 puffs)] Route: pml Inhalation; Signatures: Tanya Grayson, Reg Reg gb Clara Flannery RN RN rs3 Cynthia Tirado RN RN pml Migue Fuentes PA PA mo1 The chart was reviewed and I authenticate all verbal orders and agree with the evaluation and treatment provided.Attachments: 05/29 14:12 T-Sheet-- Draft Copy Chart Complete MTDD
--- NOTE | 2016-05-30 17:56 | EDDOCDS ---
Nurse's Notes [facility] Name: Aleksey Osullivan Age: 45 yrs Sex: Male : 1970 Arrival Date: 05/28/2016 Time: 16:19 Bed TR7 Private MD: Diagnosis: Chronic obstructive pulmonary disease with (acute) exacerbation Presentation: 05/28 16:23 Presenting complaint: Patient states: Breathing difficulty for 4 days. symptoms not rs3 improved with neb treatment. h/o COPD. Adult Sepsis Screening: The patient does not have new or worsening altered mentation. Patient's respiratory rate is less than 22. Systolic blood pressure is greater than 100. Patient has a qSOFA score of 0- Negative Sepsis Screen. Suicide/Homicide risk assessment- the patient denies having any suicidal and/or homicidal ideations and does not present with any other emotional, behavioral or mental health complaints. Status: Patient is not a information services tech or dependent. Transition of care: patient was not received from another setting of care. 16:23 Method Of Arrival: Walkin/Carried/Asstd rs3 16:23 Acuity: JORDIN Level 3 rs3 Triage Assessment: 16:27 General: Appears in no apparent distress. Pain: Location: chest. HIV screening NA for rs3 this visit Offered previously. Respiratory: Onset: The symptoms/episode began/occurred gradually. Historical: - Allergies: no known allergies; - Home Meds: 1. albuterol sulfate 90 mcg/actuation Inhl HFAA 2 puffs as needed doesnt have enough $ 2. ipratropium bromide 0.02 % inhalation soln 2.5 mL 3-4 times daily as needed 3. Symbicort 160-4.5 mcg/actuation inhalation HFAA 2 puffs 2 times per day doesnt have enough $ 4. albuterol sulfate 0.63 mg/3 mL Nebulizer nebu 0.5 ml daily - PMHx: Asthma; COPD; Seasonal Allergies; - PSHx: right leg surgery; Splenectomy; - Social history: Smoking status: Patient uses tobacco products, heavy tobacco smoker. No barriers to communication noted, The patient speaks fluent Chilean. - Family history: Not pertinent. - : The pt / caregiver states he / she is not on anticoagulants. Home medication list is obtained from the patient. - Exposure Risk Screening:: None identified. Screenin:52 Screening information is obtained from the patient. Fall risk: No risks identified. pml Assistance ADL's: requires no assistance with activities of daily living. Abuse/DV Screen: The patient / caregiver reports he/she is: not in a situation that causes fear, pain or injury. Nutritional screening: No deficits noted. Advance Directives: Currently, there is no health care proxy. home support is adequate. Assessment: 16:52 General: Appears in no apparent distress, Behavior is appropriate for age, cooperative. pml General: rude and argumentative with this machine sign writer - requesting neb devices - states his nebulizer was never prescribed to him, is his fathers, denies having a primary care - states he is just here for work, denies need for primary care in this area, requesting to speak with PA again. PA [place] aware. Pain: Denies pain. Neurological: Level of Consciousness is awake, alert, Oriented to person, place, time. Cardiovascular: Capillary refill < 3 seconds. Respiratory: Airway is patent Respiratory effort is even, unlabored, Breath sounds are clear bilaterally. Derm: Skin is pink, warm & dry. Vital Signs: 16:21 BP 147 / 89 RA Sitting (auto/reg); Pulse 82; Resp 18; Temp 97.0(O); Pulse Ox 96% on bnb R/A; Weight 83.91 kg; Height 5 ft. 9 in. (175.26 cm); Pain 10/10; 16:21 Body Mass Index 27.32 (83.91 kg, 175.26 cm) [facility] Vitals: 16:21 Log In Time: May 28, 2016 at 16:20. [facility] ED Course: 16:20 Patient visited by Jessica Alonso PCA. bnb 16:20 Patient moved to Waiting bnb 16:22 Patient visited by Jessica Alonso PCA. bnb 16:22 Patient moved to Pre RCE bnb 16:25 Triage Initiated rs3 16:28 Patient moved to Triage 2 rs3 16:29 Migue Fuentes PA is PHCP. mo1 16:29 Nella Grullon MD is Attending Physician. mo1 16:33 Patient visited by Migue Fuentes PA. mo1 16:51 Patient moved to TR7 ar3 16:52 The patient / caregiver is instructed regarding the plan of care and ED course. Patient pml has correct armband on for positive identification. Bed in low position. Call light in reach. 16:52 No IV's were initiated during this patient's visit. No procedures done that require pml assistance. 05/29 14:12 T-Sheet-- Draft Copy was scanned into [employer] and attached to record. gb Administered Medications: 05/28 16:50 Drug: Ventolin 2 puffs [Ventolin HFA 90 mcg/actuation aerosol inhaler (2 puffs)] Route: pml Inhalation; Order Results: There are currently no results for this order. Outcome: 16:40 Discharge ordered by Provider. mo1 16:52 Discharge Assessment: Patient awake, alert and oriented x 3. No cognitive and/or pml functional deficits noted. Patient verbalized understanding of disposition instructions. patient administered narcotics - no. The following High Risk Discharge criteria are identified: None. Discharged to home ambulatory. Condition: good Condition: stable. Discharge instructions given to patient, Instructed on discharge instructions, follow up and referral plans. medication usage, Demonstrated understanding of instructions, medications, Pt was receptive of discharge instructions/ teaching. Prescriptions given X 4. No special radiology studies were completed. Property sent home with patient. 16:55 Patient left the ED. pml Signatures: Tanya Grayson, Reg Reg gb Clara FlanneryRN RN rs3 Yuki Winston, BIG DATA DEVELOPER BIG DATA DEVELOPER ar3 Cynthia Tirado RN RN pml Migue Fuentes PA PA mo1 Jessica Alonso, BIG DATA DEVELOPER BIG DATA DEVELOPER bnb Corrections: (The following items were deleted from the chart) 16:28 16:23 Acuity: JORDIN Level 4 rs3 rs3 Chart Complete MTDD
== END 2016-05-28 16:55 | disposition home or self-care (01) ==
LOC: M ED 16:19
DX: J44.1 Chronic obstructive pulmonary disease with (acute) exacerbation (principal); J06.9 Acute upper respiratory infection, unspecified; J45.909 Unspecified asthma, uncomplicated; Z90.89 Acquired absence of other organs; F17.200 Nicotine dependence, unspecified, uncomplicated; Z79.51 Long term (current) use of inhaled steroids

== ENCOUNTER 2016-06-06 23:41 | Emergency (ER) | payer SELFPAY ==
[2016-06-07] MEDS ORDERED: IPRATROPIUM 0.5MG/ALBUTEROL 2.5MG INH SOL UD 3ML (DUONEB)(J7620) As Ordered ONE (00:33)
[2016-06-07] MEDS ORDERED: ALBUTEROL 90 MCG/ACT 8GM HFA INHALER As Ordered ONE (00:38)
[2016-06-07] MEDS ORDERED: predniSONE 20 MG TAB As Ordered ONE (01:16)
--- NOTE | 2016-06-07 01:22 | EDDOCDS ---
Nurse's Notes [facility] Name: Aleksey Osullivan Age: 45 yrs Sex: Male : 1970 Arrival Date: 06/06/2016 Time: 23:41 Bed I4 / M4 Private MD: NO PRIMARY PHYSICIAN, . Diagnosis: Chronic obstructive pulmonary disease with (acute) exacerbation Presentation: 06/06 23:47 Presenting complaint: Patient states: that he has been seen here at the ER 6-7 in the ms18 past few months for SOB. Pt has a hx of COPD. Pt states that he has been prescribed Symbicort but can't afford it because he doesn't have insurance. PT very talkative at this time. Pt c/o chest tightness and states he can't sleep. Adult Sepsis Screening: The patient does not have new or worsening altered mentation. Patient's respiratory rate is less than 22. Systolic blood pressure is greater than 100. Patient has a qSOFA score of 0- Negative Sepsis Screen. Suicide/Homicide risk assessment- the patient denies having any suicidal and/or homicidal ideations and does not present with any other emotional, behavioral or mental health complaints. Status: Patient is not a sleeping car service attendant or dependent. Transition of care: patient was not received from another setting of care. 23:47 Method Of Arrival: Walkin/Carried/Asstd ms18 23:47 Acuity: JRODIN Level 4 ms18 Triage Assessment: 23:51 General: Appears in no apparent distress, comfortable, Behavior is appropriate for age, ms18 cooperative. Pain: Denies pain. HIV screening NA for this visit Offered previously. Neurological: No deficits noted. Respiratory: Onset: The symptoms/episode began/occurred 4 days ago, Airway is patent Respiratory effort is even, unlabored, Respiratory pattern is regular. Derm: Skin is pink, warm & dry. normal. Historical: - Allergies: no known allergies; - Home Meds: 1. albuterol sulfate 90 mcg/actuation Inhl HFAA 2 puffs as needed doesnt have enough $ 2. albuterol sulfate 0.63 mg/3 mL Inhl nebu 0.5 mL daily doesn't have any at this time 3. ipratropium bromide 0.02 % inhalation soln 2.5 mL 3-4 times daily as needed 4. Symbicort 160-4.5 mcg/actuation inhalation HFAA 2 puffs 2 times per day doesnt have enough $ - PMHx: Asthma; COPD; Seasonal Allergies; - PSHx: Splenectomy; - Social history: Smoking status: Patient uses tobacco products, current every day smoker. No barriers to communication noted, The patient speaks fluent Ukrainian. - Family history: Not pertinent. - : The pt / caregiver states he / she is not on anticoagulants. Home medication list is obtained from the patient. - Exposure Risk Screening:: None identified. Screenin/22 00:28 Screening information is obtained from the patient. Fall risk: No risks identified. kas2 Assistance ADL's: requires no assistance with activities of daily living. Abuse/DV Screen: The patient / caregiver reports he/she is: not in a situation that causes fear, pain or injury. Nutritional screening: No deficits noted. Advance Directives: Currently, there is no health care proxy. There is no active DNR order. There is no living will. There is no Power of Tank Farm Attendant. home support is adequate. Assessment: 00:27 General: Appears in no apparent distress, well nourished, well groomed, Behavior is kas2 appropriate for age, cooperative. Pain: Denies pain. Neurological: Level of Consciousness is awake, alert, Oriented to person, place, time. Cardiovascular: Capillary refill < 3 seconds Heart tones S1 S2 present Rhythm is regular. Respiratory: Airway is patent Respiratory effort is even, unlabored, Respiratory pattern is regular, symmetrical, Breath sounds with wheezes inspiratory expiratory in left lower lobe, right lower lobe, left posterior lower lobe and right posterior lower lobe. Derm: Skin is intact, Skin is dry, Skin is pink, warm & dry. Skin temperature is warm. Vital Signs: 06/06 23:42 BP 111 / 85; Pulse 76; Resp 18 S; Temp 97.0(O); Pulse Ox 96% on R/A; Weight 83.91 kg gr2 (R); Height 5 ft. 9 in. (175.26 cm) (R); Pain /; 06/07 01:14 BP 118 / 75; Pulse 72; Resp 18; Temp 95; Pulse Ox 97.3% ; ajs 06/06 23:42 Body Mass Index 27.32 (83.91 kg, 175.26 cm) gr2 Vitals: 06/06 23:42 Log In Time: June 06, 2016 at 23:42. gr2 ED Course: 23:41 Patient visited by Dorcas Covington. gr2 23:41 Patient moved to Waiting gr2 23:42 NO PRIMARY PHYSICIAN, . is Private Physician. gr2 23:43 Patient visited by Dorcas Covington. gr2 23:43 Patient moved to Pre RCE gr2 23:50 Triage Initiated ms18 02 00:01 Patient moved to I4 / M4 ms18 00:10 Migue Fuentes PA is PHCP. mo1 00:10 Clarence Otoole MD is Attending Physician. mo1 00:27 Patient visited by Migue Fuentes PA. mo1 00:28 Patient visited by Cate Glez RN. kas2 00:52 Patient visited by Cate Glez RN. kas2 00:52 No IV's were initiated during this patient's visit. No procedures done that require kas2 assistance. 01:15 Patient visited by Jacki Bear. ajs 01:21 The patient / caregiver is instructed regarding the plan of care and ED course. af2 Administered Medications: 00:39 Drug: Albuterol-Ipratropium 3 ml [ipratropium-albuterol 0.5 mg-3 mg(2.5 mg base)/3 mL lf2 nebulization soln (3 mL)] Route: Inhalation; 00:47 Drug: Ventolin 2 puffs [Ventolin HFA 90 mcg/actuation aerosol inhaler (2 puffs)] Route: lf2 Inhalation; 01:20 Drug: predniSONE 60 mg [prednisone 20 mg tablet (3 tabs)] Route: PO; af2 RT: 00:42 Initial Med Neb Given as ordered Patient was instructed and evaluated on procedure lf2 Patient tolerated procedure well without adverse effect. Oxygen is room air. Respiratory: Airway is patent Respiratory effort is even, unlabored, Respiratory pattern is regular symmetrical, Sputum is thick white trachea is midline Breath sounds are diminished bilaterally. Breath sounds with wheezes bilaterally. at expiration Reports shortness of breath at rest cough that is productive. 00:47 Initial MDI Given. Patient tolerated procedure well without adverse effect Number of lf2 puffs given: 2. Patient Education: Pt states he does not want to use a spacer with his albuterol MDI despite RT explaining benefits to using a spacer with an MDI. He was able to demonstrate proper use of the MDI and understands that he is to take 2 puffs as ordered. Order Results: There are currently no results for this order. Outcome: 00:57 Discharge ordered by Provider. mo1 01:20 Discharge Assessment: Patient awake, alert and oriented x 3. No cognitive and/or af2 functional deficits noted. Patient verbalized understanding of disposition instructions. patient administered narcotics - no. The following High Risk Discharge criteria are identified: None. Discharged to home ambulatory. Condition: stable. Discharge instructions given to patient, Instructed on discharge instructions, follow up and referral plans. medication usage, Demonstrated understanding of instructions, medications, Pt was receptive of discharge instructions/ teaching. No special radiology studies were completed. Property :Personal belongings accompany Pt. 01:21 Patient left the ED. af2 Signatures: Jacki Bear Gainslee gr2 Migue Fuentes PA PA mo1 Vanessa Glez,RN RN ms18 Jana WarrenRN RN af2 Marian Mac,RT RT lf2 Cate Glez,RN RN kas2 MTDD
--- NOTE | 2016-06-07 01:22 | EDDOCDS ---
Physician Documentation [facility] Name: Aleksey Osullivan Age: 45 yrs Sex: Male : 1970 Arrival Date: 06/06/2016 Time: 23:41 Bed I4 / M4 Private MD: NO PRIMARY PHYSICIAN, . Disposition: 06/07/16 00:57 Discharged to Home/Self Care. Impression: Chronic obstructive pulmonary disease with (acute) exacerbation. - Condition is Stable. - Discharge Instructions: Chronic Obstructive Pulmonary Disease. - Prescriptions for Prednisone 20 mg Oral Tablet - take 2 tablet by ORAL route once daily for 5 days; 10 tablet. - Medication Reconciliation, Local Pharmacy Hours form. - Follow up: Private Physician; When: Call to arrange an appointment; Reason: Recheck today's complaints, Continuance of care. - Problem is an acute exacerbation. - Symptoms have improved. Historical: - Allergies: no known allergies; - Home Meds: 1. albuterol sulfate 90 mcg/actuation Inhl HFAA 2 puffs as needed doesnt have enough $ 2. albuterol sulfate 0.63 mg/3 mL Inhl nebu 0.5 mL daily doesn't have any at this time 3. ipratropium bromide 0.02 % inhalation soln 2.5 mL 3-4 times daily as needed 4. Symbicort 160-4.5 mcg/actuation inhalation HFAA 2 puffs 2 times per day doesnt have enough $ - PMHx: Asthma; COPD; Seasonal Allergies; - PSHx: Splenectomy; - Social history: Smoking status: Patient uses tobacco products, current every day smoker. No barriers to communication noted, The patient speaks fluent Tanzanian. - Family history: Not pertinent. - : The pt / caregiver states he / she is not on anticoagulants. Home medication list is obtained from the patient. - Exposure Risk Screening:: None identified. Vital Signs: 06/06 23:42 BP 111 / 85; Pulse 76; Resp 18 S; Temp 97.0(O); Pulse Ox 96% on R/A; Weight 83.91 kg / gr2 184.99 lbs (R); Height 5 ft. 9 in. (175.26 cm) (R); Pain 4/10; 06/07 01:14 BP 118 / 75; Pulse 72; Resp 18; Temp 95; Pulse Ox 97.3% ; ajs 06/06 23:42 Body Mass Index 27.32 (83.91 kg, 175.26 cm) gr2 MDM: 00:26 Albuterol-Ipratropium 3 ml Inhalation once ordered. mo1 00:28 Ventolin Inhaler 2 puffs Inhalation once ordered. mo1 00:57 predniSONE 60 mg PO once; administer with food or milk ordered. mo1 01:02 Financial registration complete. hs2 Administered Medications: 00:39 Drug: Albuterol-Ipratropium 3 ml [ipratropium-albuterol 0.5 mg-3 mg(2.5 mg base)/3 mL lf2 nebulization soln (3 mL)] Route: Inhalation; 00:47 Drug: Ventolin 2 puffs [Ventolin HFA 90 mcg/actuation aerosol inhaler (2 puffs)] Route: lf2 Inhalation; 01:20 Drug: predniSONE 60 mg [prednisone 20 mg tablet (3 tabs)] Route: PO; af2 Signatures: Migue Fuentes PA PA mo1 Vanessa Glez RN RN ms18 Jana Warren RN RN af2 Iona Lundberg, Reg Reg hs2 Marian Mac RT lf2 MTDD
--- NOTE | 2016-06-09 02:22 | EDDOCDS ---
Physician Documentation [facility] Name: Aleksey Osullivan Age: 45 yrs Sex: Male : 1970 Arrival Date: 06/06/2016 Time: 23:41 Bed I4 / M4 Private MD: NO PRIMARY PHYSICIAN, . Disposition: 06/07/16 00:57 Discharged to Home/Self Care. Impression: Chronic obstructive pulmonary disease with (acute) exacerbation. - Condition is Stable. - Discharge Instructions: Chronic Obstructive Pulmonary Disease. - Prescriptions for Prednisone 20 mg Oral Tablet - take 2 tablet by ORAL route once daily for 5 days; 10 tablet. - Medication Reconciliation, Local Pharmacy Hours form. - Follow up: Private Physician; When: Call to arrange an appointment; Reason: Recheck today's complaints, Continuance of care. - Problem is an acute exacerbation. - Symptoms have improved. Historical: - Allergies: no known allergies; - Home Meds: 1. albuterol sulfate 90 mcg/actuation Inhl HFAA 2 puffs as needed doesnt have enough $ 2. albuterol sulfate 0.63 mg/3 mL Inhl nebu 0.5 mL daily doesn't have any at this time 3. ipratropium bromide 0.02 % inhalation soln 2.5 mL 3-4 times daily as needed 4. Symbicort 160-4.5 mcg/actuation inhalation HFAA 2 puffs 2 times per day doesnt have enough $ - PMHx: Asthma; COPD; Seasonal Allergies; - PSHx: Splenectomy; - Social history: Smoking status: Patient uses tobacco products, current every day smoker. No barriers to communication noted, The patient speaks fluent [place]. - Family history: Not pertinent. - : The pt / caregiver states he / she is not on anticoagulants. Home medication list is obtained from the patient. - Exposure Risk Screening:: None identified. Vital Signs: 06/06 23:42 BP 111 / 85; Pulse 76; Resp 18 S; Temp 97.0(O); Pulse Ox 96% on R/A; Weight 83.91 kg / gr2 184.99 lbs (R); Height 5 ft. 9 in. (175.26 cm) (R); Pain 4/10; 06/07 01:14 BP 118 / 75; Pulse 72; Resp 18; Temp 95; Pulse Ox 97.3% ; ajs 06/06 23:42 Body Mass Index 27.32 (83.91 kg, 175.26 cm) gr2 MDM: 00:26 Albuterol-Ipratropium 3 ml Inhalation once ordered. mo1 00:28 Ventolin Inhaler 2 puffs Inhalation once ordered. mo1 00:57 predniSONE 60 mg PO once; administer with food or milk ordered. mo1 01:02 Financial registration complete. hs2 03:53 [facility] Payment Agreement was scanned into [employer] and attached to record. hs2 14:17 T-Sheet-- Draft Copy was scanned into [employer] and attached to record. gb Administered Medications: 00:39 Drug: Albuterol-Ipratropium 3 ml [ipratropium-albuterol 0.5 mg-3 mg(2.5 mg base)/3 mL lf2 nebulization soln (3 mL)] Route: Inhalation; 00:47 Drug: Ventolin 2 puffs [Ventolin HFA 90 mcg/actuation aerosol inhaler (2 puffs)] Route: lf2 Inhalation; 01:20 Drug: predniSONE 60 mg [prednisone 20 mg tablet (3 tabs)] Route: PO; af2 Signatures: Tanya Grayson, Reg Reg gb Migue Fuentes PA PA mo1 Vanessa Glez RN RN ms18 Jana Warren RN RN af2 Iona Lundberg, Reg Reg hs2 Marian Mac RT lf2 The chart was reviewed and I authenticate all verbal orders and agree with the evaluation and treatment provided.Attachments: 03:53 [facility] Payment Agreement hs2 14:17 T-Sheet-- Draft Copy gb Chart Complete MTDD
--- NOTE | 2016-06-09 02:22 | EDDOCDS ---
Physician Documentation [facility] Name: Aleksey Osullivan Age: 45 yrs Sex: Male : 1970 Arrival Date: 06/06/2016 Time: 23:41 Bed I4 / M4 Private MD: NO PRIMARY PHYSICIAN, . Disposition: 06/07/16 00:57 Discharged to Home/Self Care. Impression: Chronic obstructive pulmonary disease with (acute) exacerbation. - Condition is Stable. - Discharge Instructions: Chronic Obstructive Pulmonary Disease. - Prescriptions for Prednisone 20 mg Oral Tablet - take 2 tablet by ORAL route once daily for 5 days; 10 tablet. - Medication Reconciliation, Local Pharmacy Hours form. - Follow up: Private Physician; When: Call to arrange an appointment; Reason: Recheck today's complaints, Continuance of care. - Problem is an acute exacerbation. - Symptoms have improved. Historical: - Allergies: no known allergies; - Home Meds: 1. albuterol sulfate 90 mcg/actuation Inhl HFAA 2 puffs as needed doesnt have enough $ 2. albuterol sulfate 0.63 mg/3 mL Inhl nebu 0.5 mL daily doesn't have any at this time 3. ipratropium bromide 0.02 % inhalation soln 2.5 mL 3-4 times daily as needed 4. Symbicort 160-4.5 mcg/actuation inhalation HFAA 2 puffs 2 times per day doesnt have enough $ - PMHx: Asthma; COPD; Seasonal Allergies; - PSHx: Splenectomy; - Social history: Smoking status: Patient uses tobacco products, current every day smoker. No barriers to communication noted, The patient speaks fluent Kyrgyz. - Family history: Not pertinent. - : The pt / caregiver states he / she is not on anticoagulants. Home medication list is obtained from the patient. - Exposure Risk Screening:: None identified. Vital Signs: 06/06 23:42 BP 111 / 85; Pulse 76; Resp 18 S; Temp 97.0(O); Pulse Ox 96% on R/A; Weight 83.91 kg / gr2 184.99 lbs (R); Height 5 ft. 9 in. (175.26 cm) (R); Pain 4/10; 06/07 01:14 BP 118 / 75; Pulse 72; Resp 18; Temp 95; Pulse Ox 97.3% ; ajs 06/06 23:42 Body Mass Index 27.32 (83.91 kg, 175.26 cm) gr2 MDM: 00:26 Albuterol-Ipratropium 3 ml Inhalation once ordered. mo1 00:28 Ventolin Inhaler 2 puffs Inhalation once ordered. mo1 00:57 predniSONE 60 mg PO once; administer with food or milk ordered. mo1 01:02 Financial registration complete. hs2 03:53 [facility] Payment Agreement was scanned into [employer] and attached to record. hs2 14:17 T-Sheet-- Draft Copy was scanned into [employer] and attached to record. gb Administered Medications: 00:39 Drug: Albuterol-Ipratropium 3 ml [ipratropium-albuterol 0.5 mg-3 mg(2.5 mg base)/3 mL lf2 nebulization soln (3 mL)] Route: Inhalation; 00:47 Drug: Ventolin 2 puffs [Ventolin HFA 90 mcg/actuation aerosol inhaler (2 puffs)] Route: lf2 Inhalation; 01:20 Drug: predniSONE 60 mg [prednisone 20 mg tablet (3 tabs)] Route: PO; af2 Signatures: Tanya Grayson, Reg Reg gb Migue Fuentes PA PA mo1 Vanessa Glez RN RN ms18 Jana Warren RN RN af2 Iona Lundberg, Reg Reg hs2 Marian Mac RT lf2 The chart was reviewed and I authenticate all verbal orders and agree with the evaluation and treatment provided.Attachments: 03:53 [facility] Payment Agreement hs2 14:17 T-Sheet-- Draft Copy gb Chart Complete MTDD
--- NOTE | 2016-06-09 02:23 | EDDOCDS ---
Nurse's Notes [facility] Name: Aleksey Osullivan Age: 45 yrs Sex: Male : 1970 Arrival Date: 06/06/2016 Time: 23:41 Bed I4 / M4 Private MD: NO PRIMARY PHYSICIAN, . Diagnosis: Chronic obstructive pulmonary disease with (acute) exacerbation Presentation: 06/06 23:47 Presenting complaint: Patient states: that he has been seen here at the ER 6-7 in the ms18 past few months for SOB. Pt has a hx of COPD. Pt states that he has been prescribed Symbicort but can't afford it because he doesn't have insurance. PT very talkative at this time. Pt c/o chest tightness and states he can't sleep. Adult Sepsis Screening: The patient does not have new or worsening altered mentation. Patient's respiratory rate is less than 22. Systolic blood pressure is greater than 100. Patient has a qSOFA score of 0- Negative Sepsis Screen. Suicide/Homicide risk assessment- the patient denies having any suicidal and/or homicidal ideations and does not present with any other emotional, behavioral or mental health complaints. Status: Patient is not a telephone service adviser or dependent. Transition of care: patient was not received from another setting of care. 23:47 Method Of Arrival: Walkin/Carried/Asstd ms18 23:47 Acuity: JORDIN Level 4 ms18 Triage Assessment: 23:51 General: Appears in no apparent distress, comfortable, Behavior is appropriate for age, ms18 cooperative. Pain: Denies pain. HIV screening NA for this visit Offered previously. Neurological: No deficits noted. Respiratory: Onset: The symptoms/episode began/occurred 4 days ago, Airway is patent Respiratory effort is even, unlabored, Respiratory pattern is regular. Derm: Skin is pink, warm & dry. normal. Historical: - Allergies: no known allergies; - Home Meds: 1. albuterol sulfate 90 mcg/actuation Inhl HFAA 2 puffs as needed doesnt have enough $ 2. albuterol sulfate 0.63 mg/3 mL Inhl nebu 0.5 mL daily doesn't have any at this time 3. ipratropium bromide 0.02 % inhalation soln 2.5 mL 3-4 times daily as needed 4. Symbicort 160-4.5 mcg/actuation inhalation HFAA 2 puffs 2 times per day doesnt have enough $ - PMHx: Asthma; COPD; Seasonal Allergies; - PSHx: Splenectomy; - Social history: Smoking status: Patient uses tobacco products, current every day smoker. No barriers to communication noted, The patient speaks fluent Luxembourgish. - Family history: Not pertinent. - : The pt / caregiver states he / she is not on anticoagulants. Home medication list is obtained from the patient. - Exposure Risk Screening:: None identified. Screenin/22 00:28 Screening information is obtained from the patient. Fall risk: No risks identified. kas2 Assistance ADL's: requires no assistance with activities of daily living. Abuse/DV Screen: The patient / caregiver reports he/she is: not in a situation that causes fear, pain or injury. Nutritional screening: No deficits noted. Advance Directives: Currently, there is no health care proxy. There is no active DNR order. There is no living will. 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 home support is adequate. Assessment: 00:27 General: Appears in no apparent distress, well nourished, well groomed, Behavior is kas2 appropriate for age, cooperative. Pain: Denies pain. Neurological: Level of Consciousness is awake, alert, Oriented to person, place, time. Cardiovascular: Capillary refill < 3 seconds Heart tones S1 S2 present Rhythm is regular. Respiratory: Airway is patent Respiratory effort is even, unlabored, Respiratory pattern is regular, symmetrical, Breath sounds with wheezes inspiratory expiratory in left lower lobe, right lower lobe, left posterior lower lobe and right posterior lower lobe. Derm: Skin is intact, Skin is dry, Skin is pink, warm & dry. Skin temperature is warm. Vital Signs: 06/06 23:42 BP 111 / 85; Pulse 76; Resp 18 S; Temp 97.0(O); Pulse Ox 96% on R/A; Weight 83.91 kg gr2 (R); Height 5 ft. 9 in. (175.26 cm) (R); Pain /; 06/07 01:14 BP 118 / 75; Pulse 72; Resp 18; Temp 95; Pulse Ox 97.3% ; ajs 06/06 23:42 Body Mass Index 27.32 (83.91 kg, 175.26 cm) gr2 Vitals: 06/06 23:42 Log In Time: June 06, 2016 at 23:42. gr2 ED Course: 23:41 Patient visited by Dorcas Covington. gr2 23:41 Patient moved to Waiting gr2 23:42 NO PRIMARY PHYSICIAN, . is Private Physician. gr2 23:43 Patient visited by Dorcas Covington. gr2 23:43 Patient moved to Pre RCE gr2 23:50 Triage Initiated ms18 0222 00:01 Patient moved to I4 / M4 ms18 00:10 Migue Fuentes PA is PHCP. mo1 00:10 Clarence Otoole MD is Attending Physician. mo1 00:27 Patient visited by Migue Fuentes PA. mo1 00:28 Patient visited by Cate Glez RN. kas2 00:52 Patient visited by Cate Glez RN. kas2 00:52 No IV's were initiated during this patient's visit. No procedures done that require kas2 assistance. 01:15 Patient visited by Jacki Bear. ajs 01:21 The patient / caregiver is instructed regarding the plan of care and ED course. af2 03:53 [facility] Payment Agreement was scanned into [employer] and attached to record. hs2 14:17 T-Sheet-- Draft Copy was scanned into [employer] and attached to record. gb Administered Medications: 00:39 Drug: Albuterol-Ipratropium 3 ml [ipratropium-albuterol 0.5 mg-3 mg(2.5 mg base)/3 mL lf2 nebulization soln (3 mL)] Route: Inhalation; 00:47 Drug: Ventolin 2 puffs [Ventolin HFA 90 mcg/actuation aerosol inhaler (2 puffs)] Route: lf2 Inhalation; 01:20 Drug: predniSONE 60 mg [prednisone 20 mg tablet (3 tabs)] Route: PO; af2 RT: 00:42 Initial Med Neb Given as ordered Patient was instructed and evaluated on procedure lf2 Patient tolerated procedure well without adverse effect. Oxygen is room air. Respiratory: Airway is patent Respiratory effort is even, unlabored, Respiratory pattern is regular symmetrical, Sputum is thick white trachea is midline Breath sounds are diminished bilaterally. Breath sounds with wheezes bilaterally. at expiration Reports shortness of breath at rest cough that is productive. 00:47 Initial MDI Given. Patient tolerated procedure well without adverse effect Number of lf2 puffs given: 2. Patient Education: Pt states he does not want to use a spacer with his albuterol MDI despite RT explaining benefits to using a spacer with an MDI. He was able to demonstrate proper use of the MDI and understands that he is to take 2 puffs as ordered. Order Results: There are currently no results for this order. Outcome: 00:57 Discharge ordered by Provider. mo1 01:20 Discharge Assessment: Patient awake, alert and oriented x 3. No cognitive and/or af2 functional deficits noted. Patient verbalized understanding of disposition instructions. patient administered narcotics - no. The following High Risk Discharge criteria are identified: None. Discharged to home ambulatory. Condition: stable. Discharge instructions given to patient, Instructed on discharge instructions, follow up and referral plans. medication usage, Demonstrated understanding of instructions, medications, Pt was receptive of discharge instructions/ teaching. No special radiology studies were completed. Property :Personal belongings accompany Pt. 01:21 Patient left the ED. af2 Signatures: Tanya Grayson, Reg Reg gb Chema, Dorcas Hendrix gr2 Migue Fuentes PA PA mo1 Vanessa Glez,RN RN ms18 Jana Warren,RN RN af2 Marian Mac,RT RT lf2 Iona Lundberg, Reg Reg hs2 Cate Glez,RN RN kas2 Chart Complete MTDD
== END 2016-06-07 01:21 | disposition home or self-care (01) ==
LOC: M ED 23:41
DX: J44.1 Chronic obstructive pulmonary disease with (acute) exacerbation (principal); J45.909 Unspecified asthma, uncomplicated; F17.210 Nicotine dependence, cigarettes, uncomplicated; Z79.51 Long term (current) use of inhaled steroids; Z91.120 Patient's intentional underdosing of medication regimen due to financial hardship